=== PATIENT | male | born 1950 | race Caucasian/White ===

== ENCOUNTER 2016-09-26 08:59 | Day surgery (SDC) | payer BC ==
[~2016-09-26 08:59] MED LIST: LACTATED RINGERS 1,000 ML IV SCH
[2016-09-26] MEDS ORDERED: TRIAMCINOLONE ACETONIDE 40 MG/ML 1 ML VIAL ONE (09:05)
[2016-09-26] MEDS ORDERED: MIDAZOLAM 2 MG/2 ML VIAL ONE (09:05)
[2016-09-26] MEDS ORDERED: IOHEXOL 180 MG/ML 1 ML ML ONE (09:05)
[2016-09-26] MEDS ORDERED: fentaNYL (PF) 50 MCG/ML 2 ML AMP ONE (09:05)
[2016-09-26 09:09] VITALS: RESP 16; TEMP 97.1
[2016-09-26] MEDS ORDERED: LACTATED RINGERS 1,000 ML IV ONE (09:10)
[2016-09-26] MEDS ORDERED: LIDOCAINE 1% 20 ML VIAL (10MG/ML) FOR IV START SQ ONE (09:11)
--- NOTE | 2016-09-26 09:28 | P.PCN ---
Date of Procedure: 09/26/16 Procedure(s) Performed: PREOPERATIVE DIAGNOSIS: 1- Lumbar Degenerative Disc Diseases 2-Lumbar spondylosis with Facet arthropathy without myelopathy POSTOPERATIVE DIAGNOSIS: 1-Lumber Degenerative Disc Diseases 2-Lumbar spondylosis with Facet arthropathy without myelopathy PROCEDURE 1. Lumbar epidural steroid injection under fluoroscopic guidance at the L4-5 level. 2. Lumbar epidurogram. ANESTHESIA: Local with 1% lidocaine 3 ml and IV sedation with Versed 1 mg , and fentanyle 50 Mcg EBL: Minimal PROCEDURE INDICATION: The patient with low back pain and radiculitis symptoms unresponsive to conservative treatment. Fluoroscopy was used to optimize visualization of the needle placement and to maximize safety. PROCEDURE DESCRIPTION / TECHNIQUE: The patient was seen and identified in the preoperative area. Risks, benefits , complications including but not limited to infections ,bleeding ,allergic reaction to the medications ,nerve damage and not complete pain releife , and alternatives were discussed with the patient. The patient agreed to proceed with the procedure and signed the consent. IV was started, and vital signs were stable. Patient was taken to the OR and time out was completed. The patient was placed in the prone position on procedure table and a pillow was placed under the abdomen to reduce lumbar lordosis. The lumbosacral area was prepped and draped in the usual sterile fashion.ere closely monitored during the procedure. Conscious sedation was used during the procedure to decrease patients anxiety. Vital signs was monitered during the entire procedure. Using anterior-posterior fluoroscopy, the L4-5 interlaminar space was identified and the skin over this site was marked and then infiltrated with 1% lidocaine subcutaneously. Subsequently, a 20-gauge Tuohy epidural needle was inserted and advanced toward the epidural space using the Loss of resistance technique and guided by AP and lateral fluoroscopy. The correct needle position in the epidural space was verified with the injection of 2 mL of the water soluble contrast dye Omnipaque 180 contrast and observing an excellent epidurogram with the epidural spread of the dye, after negative aspiration for blood and CSF and in the absence of paresthesias. Again after negative aspiration, a 6 ml mixture containing 80 mg of Kenalog and 2 ml of preservative free Normal Saline, and 2 ml of preservative free lidocaine 1% solution was injected and a washout of epidurogram was seen. Needle was withdrawn intact, skin was cleansed, and bandages were applied. COMPLICATIONS: None DISPOSITION / PLANS: The patient was placed in a supine position and transferred to the recovery area in a stable condition for observation. There was no evidence of lower extremity motor or sensory deficit after the procedure. Patient was discharged from the recovery room after meeting discharge criteria. Home discharge instructions were given to the patient by the staff. The patient was reexamined prior to discharge. The patient will schedule a follow up in the clinic in 2-4 weeks.
[2016-09-26] MEDS ORDERED: IV FLUID CONTINUATION 1,000 ML IV ONE (09:38)
[2016-09-26 09:42] VITALS: PULSE 57
[2016-09-26 09:56] VITALS: BP 126/78
--- NOTE | 2016-09-26 10:51 | FL ---
EXAMINATION TYPE: FL guided pain mgmt statistic DATE OF EXAM: 09/26/2016 9:40 AM HISTORY: Lumbar epidural Fluoroscopy support supplied to the referring clinician. See dictated report from anesthesia, one se cond fluoroscopy time, intraoperative C-arm image documents the procedure
== END 2016-09-26 10:21 | disposition home or self-care (01) ==
LOC: ORPAIN 08:59
PROVIDERS: ATTEND Specialist
DX: M51.16 Intervertebral disc disorders with radiculopathy, lumbar region (principal); I10 Essential (primary) hypertension; M46.86 Other specified inflammatory spondylopathies, lumbar region
CPT/HCPCS: 62322; J2250; J3301; Q9965; J3010; 62323

== ENCOUNTER 2016-11-14 12:20 | Day surgery (SDC) | payer BC ==
[2016-11-11 15:40] VITALS: BMI 24.3
[2016-11-14 12:38] VITALS: RESP 16; TEMP 97
[2016-11-14] MEDS ORDERED: LIDOCAINE 1% 20 ML VIAL (10MG/ML) FOR IV START INTRADERMA ONE (12:39)
[2016-11-14] MEDS ORDERED: fentaNYL (PF) 50 MCG/ML 2 ML AMP ONE (13:21)
[2016-11-14] MEDS ORDERED: IOHEXOL 180 MG/ML 1 ML ML ONE (13:21)
[2016-11-14] MEDS ORDERED: TRIAMCINOLONE ACETONIDE 40 MG/ML 1 ML VIAL ONE (13:21)
[2016-11-14] MEDS ORDERED: MIDAZOLAM 2 MG/2 ML VIAL ONE (13:21)
--- NOTE | 2016-11-14 13:37 | P.PCN ---
Date of Procedure: 11/14/16 Surgeon: Kei Doyle Pathology: none sent Condition: stable Disposition: PACU Description of Procedure: PREOPERATIVE DIAGNOSIS: 1-Lumbar radiculitis. POSTOPERATIVE DIAGNOSIS: 1-Lumbar radiculitis. PROCEDURE 1. Lumbar epidural steroid injection under fluoroscopic guidance at the L4-L5 level. 2. Lumbar epidurogram. ANESTHESIA: Local with 1% lidocaine; IV sedation with Versed/fentanyl. EBL: Minimal PROCEDURE INDICATION: The patient with low back pain and radiculitis symptoms unresponsive to conservative treatment. Fluoroscopy was used to optimize visualization of the needle placement and to maximize safety. PROCEDURE DESCRIPTION / TECHNIQUE: The patient was seen and identified in the preoperative area. Risks, benefits, complications, and alternatives were discussed with the patient, including but not limited to bleeding, infection, nerve damage, allergic reactions to medications, and incomplete pain relief. The patient agreed to proceed with the procedure and signed the consent after all questions were answered. IV was started, and vital signs were stable. Patient was taken to the OR and time out was completed to confirm patient position, procedure, laterality of pain, and allergies. The patient was placed in the prone position on procedure table and a pillow was placed under the abdomen to reduce lumbar lordosis. The lumbosacral area was prepped and draped in the usual sterile fashion. Critical pause was taken. Vital signs were closely monitored during the procedure. Conscious sedation was used during the procedure to decrease patients anxiety. Using anterior-posterior fluoroscopy, the L4-L5 interlaminar space was identified and the skin over this site was marked and then infiltrated with 1% lidocaine subcutaneously in a paramedian fashion. Subsequently, a 20-gauge 3.5- inch Tuohy epidural needle was inserted and advanced toward the epidural space using the Loss of resistance technique and guided by AP and lateral fluoroscopy. The correct needle position in the epidural space was verified with the injection of 2 mL of the water soluble contrast dye Omnipaque 300 contrast and observing an excellent epidurogram with the epidural spread of the dye, after negative aspiration for blood and CSF and in the absence of paresthesias. Again after negative aspiration, a 8 ml mixture containing 80 mg of Kenalog and 4 ml of preservative free Normal Saline, and 2 ml of preservative free lidocaine 1% solution was injected and a washout of epidurogram was seen. Needle was withdrawn intact, skin was cleansed, and bandages were applied. COMPLICATIONS: None COMMENTS: DISPOSITION / PLANS: The patient was placed in a supine position and transferred to the recovery area in a stable condition for observation. There was no evidence of lower extremity motor or sensory deficit after the procedure. Patient was discharged from the recovery room after meeting discharge criteria. Home discharge instructions were given to the patient by the staff. The patient was reexamined prior to discharge and there were no issues. The patient will schedule a follow up injection in 4-6 weeks.
[2016-11-14 13:45] VITALS: BP 131/78; PULSE 58
[2016-11-14] MEDS ORDERED: IV FLUID CONTINUATION 1,000 ML IV ONE (14:47)
--- NOTE | 2016-11-14 15:03 | FL ---
Fluoroscopy HISTORY: Pain 9 seconds fluoroscopy time supplied to the referring clinician. 2 intraoperative C-arm images docume nt the procedure. See dictated report from anesthesia.
== END 2016-11-14 14:45 | disposition home or self-care (01) ==
LOC: ORPAIN 12:20
PROVIDERS: ATTEND Anesthesiology
DX: G89.29 Other chronic pain (principal); M54.16 Radiculopathy, lumbar region; F41.9 Anxiety disorder, unspecified; I10 Essential (primary) hypertension; E78.5 Hyperlipidemia, unspecified; F32.9 Major depressive disorder, single episode, unspecified; K21.9 Gastro-esophageal reflux disease without esophagitis; Z91.030 Bee allergy status; Z79.1 Long term (current) use of non-steroidal anti-inflammatories (NSAID); Z79.891 Long term (current) use of opiate analgesic; Z79.82 Long term (current) use of aspirin; Z79.899 Other long term (current) drug therapy
CPT/HCPCS: 62323; J2250; J3301; Q9965; J3010

== ENCOUNTER 2016-12-25 06:29 | Day surgery (SDC) | payer MEDICARE ==
[2016-12-24 10:18] VITALS: BMI 24.0
[2016-12-25 07:20] VITALS: RESP 16; TEMP 98.1
[2016-12-25] MEDS ORDERED: LIDOCAINE 1% 20 ML VIAL (10MG/ML) FOR IV START SQ ONE (07:31)
[2016-12-25] MEDS ORDERED: LACTATED RINGERS 1,000 ML IV ONE (07:33)
[2016-12-25] MEDS ORDERED: MIDAZOLAM 2 MG/2 ML VIAL ONE (07:38)
[2016-12-25] MEDS ORDERED: TRIAMCINOLONE ACETONIDE 40 MG/ML 1 ML VIAL ONE (07:38)
[2016-12-25] MEDS ORDERED: IOHEXOL 180 MG/ML 1 ML ML ONE (07:38)
[2016-12-25] MEDS ORDERED: fentaNYL (PF) 50 MCG/ML 2 ML AMP ONE (07:38)
[2016-12-25] MEDS ORDERED: IV FLUID CONTINUATION 1,000 ML IV ONE (07:56)
[2016-12-25 08:13] VITALS: PULSE 56
[2016-12-25 08:31] VITALS: BP 134/90
--- NOTE | 2016-12-25 08:52 | FL ---
EXAMINATION TYPE: FL guided pain mgmt statistic DATE OF EXAM: 12/25/2016 7:54 AM HISTORY: Flouroscopy time 1 seconds of fluoroscopy provided. IMPRESSION: 1. Fluoroscopy time.
--- NOTE | 2016-12-25 11:06 | P.PCN ---
Date of Procedure: 12/25/16 Procedure(s) Performed: PREOPERATIVE DIAGNOSIS: 1- Lumbar Degenerative Disc Diseases 2-Lumbar spondylosis with Facet arthropathy without myelopathy POSTOPERATIVE DIAGNOSIS: 1-Lumber Degenerative Disc Diseases 2-Lumbar spondylosis with Facet arthropathy without myelopathy PROCEDURE 1. Lumbar epidural steroid injection under fluoroscopic guidance at the L4-5 level. 2. Lumbar epidurogram. ANESTHESIA: Local with 1% lidocaine 3 ml and IV sedation with Versed 2 mg , and fentanyle 100 Mcg EBL: Minimal PROCEDURE INDICATION: The patient with low back pain and radiculitis symptoms unresponsive to conservative treatment. Fluoroscopy was used to optimize visualization of the needle placement and to maximize safety. PROCEDURE DESCRIPTION / TECHNIQUE: The patient was seen and identified in the preoperative area. Risks, benefits , complications including but not limited to infections ,bleeding ,allergic reaction to the medications ,nerve damage and not complete pain releife , and alternatives were discussed with the patient. The patient agreed to proceed with the procedure and signed the consent. IV was started, and vital signs were stable. Patient was taken to the OR and time out was completed. The patient was placed in the prone position on procedure table and a pillow was placed under the abdomen to reduce lumbar lordosis. The lumbosacral area was prepped and draped in the usual sterile fashion.ere closely monitored during the procedure. Conscious sedation was used during the procedure to decrease patients anxiety. Vital signs was monitered during the entire procedure. Using anterior-posterior fluoroscopy, the L4-5 interlaminar space was identified and the skin over this site was marked and then infiltrated with 1% lidocaine subcutaneously. Subsequently, a 20-gauge Tuohy epidural needle was inserted and advanced toward the epidural space using the ``Loss of resistance technique and guided by AP and lateral fluoroscopy. The correct needle position in the epidural space was verified with the injection of 2 mL of the water soluble contrast dye Omnipaque 180 contrast and observing an excellent epidurogram with the epidural spread of the dye, after negative aspiration for blood and CSF and in the absence of paresthesias. Again after negative aspiration, a 6 ml mixture containing 80 mg of Kenalog and 2 ml of preservative free Normal Saline, and 2 ml of preservative free lidocaine 1% solution was injected and a washout of epidurogram was seen. Needle was withdrawn intact, skin was cleansed, and bandages were applied. COMPLICATIONS: None DISPOSITION / PLANS: The patient was placed in a supine position and transferred to the recovery area in a stable condition for observation. There was no evidence of lower extremity motor or sensory deficit after the procedure. Patient was discharged from the recovery room after meeting discharge criteria. Home discharge instructions were given to the patient by the staff. The patient was reexamined prior to discharge. The patient will schedule a follow up in the clinic in 2-4 weeks.
== END 2016-12-25 08:49 | disposition home or self-care (01) ==
LOC: ORPAIN 06:29
PROVIDERS: ATTEND Specialist
DX: M46.96 Unspecified inflammatory spondylopathy, lumbar region (principal); M47.26 Other spondylosis with radiculopathy, lumbar region; M51.16 Intervertebral disc disorders with radiculopathy, lumbar region; Z88.6 Allergy status to analgesic agent
CPT/HCPCS: 62323; J2250; J3301; Q9965; J3010

== ENCOUNTER → 2017-02-03 | Outpatient (CLI) | payer MEDICARE ==
[2017-02-03 12:58] VITALS: BP 158/97; PULSE 56; RESP 16; TEMP 98.2
--- NOTE | 2017-02-03 13:22 | P.PN ---
Progress Note - Text This is a 67-year-old gentleman with axial lower back pain with occasional radiation to the upper thighs. The patient denies any paresthesia in the lower extremities or any weakness. He also denies any bowel or bladder dysfunction. The patient denies any nocturnal pain or any weight loss recently. He had 3 epidural steroid injections before with short period of pain relief for less than 1 week. Neuro exam showed normal muscle strength in the lower extremities and normal deep tendon reflexes. He has tenderness in the lumbar paravertebral area bilaterally and facet loading test was positive. The patient may benefit from getting diagnostic lumbar medial branch block without steroids, and if it does give the patient more than 50% of pain relief immediately after the procedure then we can plan on doing RFA in the future. The procedure was explained to the patient and his questions and his 's questions were answered. If the patient does not get improvement of his pain from this procedure then we will plan on doing another MRI on the lumbar spine. The patient's pain does not respond to a combination of tramadol and Motrin. I will give him prescription only for 2 weeks of [place] 7.5 mg #30 pills. I told the patient not to combine tramadol with [place] but he can take Motrin with [place] if needed.
== END | disposition home or self-care (01) ==
LOC: PNWHC3 12:33
PROVIDERS: ATTEND Anesthesiology
DX: M54.5 Low back pain (principal)
CPT/HCPCS: 99211

== ENCOUNTER 2017-02-13 10:07 | Day surgery (SDC) | payer MEDICARE ==
[2017-02-13] MEDS ORDERED: LIDOCAINE 1% 20 ML VIAL (10MG/ML) FOR IV START INTRADERMA ONE (10:34)
[2017-02-13] MEDS ORDERED: MIDAZOLAM 2 MG/2 ML VIAL ONE (10:39)
[2017-02-13] MEDS ORDERED: BUPIVACAINE (PF) 0.5% 30 ML VIAL ONE (10:39)
--- NOTE | 2017-02-13 10:56 | P.PCN ---
Date of Procedure: 02/13/17 Preoperative Diagnosis: Postoperative Diagnosis: Procedure(s) Performed: Implants: Surgeon: Kei Doyle Pathology: none sent Condition: stable Disposition: PACU Indications for Procedure: Operative Findings: Description of Procedure: PREOPERATIVE DIAGNOSIS: L3-L4, L4-L5, and L5-S1 spondylosis without myelopathy and facet arthropathy. POSTOPERATIVE DIAGNOSIS: L3-L4, L4-L5, and L5-S1 spondylosis without myelopathy and facet arthropathy. PROCEDURE DESCRIPTION: Patient presents for bilateral L3, L4 and L5 diagnostic medial branch blocks under fluoroscopic guidance. The procedure is performed using fluoroscopic guidance during needle placement to assure proper position and maximize safety. ANESTHESIA: Local with 1% lidocaine; conscious sedation EBL: Minimal PROCEDURE INDICATION: Patient with lumbar facet arthropathy signs and symptoms, here for diagnostic medial branch block #1. Pt does not take any blood thinning medications. PROCEDURE DESCRIPTION: The patient was seen and identified in the preoperative area. Risks, benefits, complications, and alternatives were discussed with the patient (including but not limited to incomplete pain relief, bleeding, infection, nerve damage, and allergies to medications), the patient agreed to proceed with the procedure and signed the consent after all questions were answered. Patient was taken to the OR and time out was completed to verify proper patient, position, laterality of pain, and allergies. Pt was placed in the prone position and a pillow was placed under the abdomen to reduce lumbar lordosis. The lumbosacral area was prepped and draped in the usual sterile fashion. Using oblique fluoroscopy, the eye of the "Pablo dog" of right L4 vertebral body, which corresponds to the path of the medial branch originating from the level above, which is L3 in this case, was identified. Subsequently, a 22-gauge 3.5-inch spinal needle was inserted under fluoroscopic guidance toward the eye of the "Pablo dog" of the right L4 vertebral body, corresponding to the junction of the superior articular process and the transverse process of the pedicle of the same level. After needle tip confirmation on lateral view and after negative aspiration for CSF and blood and without paresthesias, 1 mL of a 6 ml solution of 0.5% preservative-free bupivacaine was injected. NO STEROID USED FOR THIS PROCEDURE. Subsequently the needle was withdrawn intact and the same procedure was repeated for the right L4, right L5, left L3, left L4, and left L5 medial branches which together with right L3 medial branch correspond to the sensory innervation of the bilateral L3-L4, L4-L5, and L5-S1 facet joints. Needle was withdrawn intact after each injection. At the end of the procedure, the skin was cleansed and bandages were applied. COMPLICATIONS: None. DISPOSITION/PLAN: The patient taken to the recovery area after the procedure in a stable condition for observation. Patient was reexamined prior to discharge and there were no issues and he had excellent pain relief > 50% of his back pain. Patient was discharged home, accompanied by an adult, after meeting discharged criteria. Discharge instructions were give to the patient by the staff. Patient was specifically instructed not to drive today and to rest for the rest of the day. Patient will follow up for repeat medial branch block.
[2017-02-13] MEDS ORDERED: IV FLUID CONTINUATION 800 ML IV ONE (11:06)
[2017-02-13 11:08] VITALS: RESP 16
[2017-02-13 11:28] VITALS: BP 148/82; PULSE 59
--- NOTE | 2017-02-13 11:36 | FL ---
FLUOROSCOPY 13 seconds of fluoroscopy time were utilized during Pain Injection. 6 images document the procedure.
== END 2017-02-13 11:45 | disposition home or self-care (01) ==
LOC: ORPAIN 10:07
PROVIDERS: ATTEND Anesthesiology
DX: M46.96 Unspecified inflammatory spondylopathy, lumbar region (principal); M47.816 Spondylosis without myelopathy or radiculopathy, lumbar region; M47.817 Spondylosis without myelopathy or radiculopathy, lumbosacral region; Z88.6 Allergy status to analgesic agent
CPT/HCPCS: 99152; 64493; 64494; 64495; J2250

== ENCOUNTER 2017-03-12 07:52 | Day surgery (SDC) | payer MEDICARE ==
[2017-03-10 12:22] VITALS: BMI 24.9
[2017-03-12 08:08] VITALS: TEMP 98.4
[2017-03-12] MEDS ORDERED: LIDOCAINE 1% 20 ML VIAL (10MG/ML) FOR IV START INTRADERMA ONE (08:15)
[2017-03-12] MEDS ORDERED: LACTATED RINGERS 1,000 ML IV SCH (08:15)
[2017-03-12] MEDS ORDERED: BUPIVACAINE (PF) 0.5% 30 ML VIAL ONE (08:40)
[2017-03-12] MEDS ORDERED: DEXAMETHASONE SOD PHOS (MDV) 100 MG/10 ML VIAL ONE (08:40)
[2017-03-12] MEDS ORDERED: MIDAZOLAM 2 MG/2 ML VIAL ONE (08:40)
--- NOTE | 2017-03-12 09:02 | P.PCN ---
Date of Procedure: 03/12/17 Preoperative Diagnosis: Postoperative Diagnosis: Procedure(s) Performed: Implants: Surgeon: Kei Doyle Pathology: none sent Condition: stable Disposition: PACU Indications for Procedure: Operative Findings: Description of Procedure: PREOPERATIVE DIAGNOSIS: L3-L4, L4-L5, and L5-S1 spondylosis without myelopathy and facet arthropathy. POSTOPERATIVE DIAGNOSIS: L3-L4, L4-L5, and L5-S1 spondylosis without myelopathy and facet arthropathy. PROCEDURE DESCRIPTION: Patient presents for bilateral L3, L4 and L5 diagnostic medial branch blocks under fluoroscopic guidance. The procedure is performed using fluoroscopic guidance during needle placement to assure proper position and maximize safety. ANESTHESIA: Local with 1% lidocaine; conscious sedation with Versed only EBL: Minimal PROCEDURE INDICATION: Patient with lumbar facet arthropathy signs and symptoms, here for diagnostic medial branch block #1. Pt does not take any blood thinning medications. 80% relief for one day from first MBB. PROCEDURE DESCRIPTION: The patient was seen and identified in the preoperative area. Risks, benefits, complications, and alternatives were discussed with the patient (including but not limited to incomplete pain relief, bleeding, infection, nerve damage, and allergies to medications), the patient agreed to proceed with the procedure and signed the consent after all questions were answered. Patient was taken to the OR and time out was completed to verify proper patient, position, laterality of pain, and allergies. Pt was placed in the prone position and a pillow was placed under the abdomen to reduce lumbar lordosis. The lumbosacral area was prepped and draped in the usual sterile fashion. Using oblique fluoroscopy, the eye of the "Pablo dog" of right L4 vertebral body, which corresponds to the path of the medial branch originating from the level above, which is L3 in this case, was identified. Subsequently, a 22-gauge 3.5-inch spinal needle was inserted under fluoroscopic guidance toward the eye of the "Pablo dog" of the right L4 vertebral body, corresponding to the junction of the superior articular process and the transverse process of the pedicle of the same level. After needle tip confirmation on lateral view and after negative aspiration for CSF and blood and without paresthesias, 1 mL of a 6 ml solution of 0.5% preservative-free bupivacaine was injected. NO STEROID USED FOR THIS PROCEDURE. Subsequently the needle was withdrawn intact and the same procedure was repeated for the right L4, right L5, left L3, left L4, and left L5 medial branches which together with right L3 medial branch correspond to the sensory innervation of the bilateral L3-L4, L4-L5, and L5-S1 facet joints. Needle was withdrawn intact after each injection. At the end of the procedure, the skin was cleansed and bandages were applied. COMPLICATIONS: None. DISPOSITION/PLAN: The patient taken to the recovery area after the procedure in a stable condition for observation. Patient was reexamined prior to discharge and there were no issues and he had excellent pain relief > 50% of his back pain prior to discharge. Patient was discharged home, accompanied by an adult, after meeting discharged criteria. Discharge instructions were give to the patient by the staff. Patient was specifically instructed not to drive today and to rest for the rest of the day. Patient will schedule right lumbar RFA next.
[2017-03-12] MEDS ORDERED: IV FLUID CONTINUATION 1,000 ML IV ONE (09:04)
[2017-03-12 09:06] VITALS: PULSE 56; RESP 18
--- NOTE | 2017-03-12 09:08 | FL ---
FLUOROSCOPY 14 seconds of fluoroscopy time were utilized during Pain Injection. 6 images document the procedure.
[2017-03-12 09:20] VITALS: BP 137/87
== END 2017-03-12 09:34 | disposition home or self-care (01) ==
LOC: ORPAIN 07:52
PROVIDERS: ATTEND Anesthesiology
DX: G89.29 Other chronic pain (principal); M47.816 Spondylosis without myelopathy or radiculopathy, lumbar region; M47.817 Spondylosis without myelopathy or radiculopathy, lumbosacral region; M46.96 Unspecified inflammatory spondylopathy, lumbar region; M46.97 Unspecified inflammatory spondylopathy, lumbosacral region; F32.9 Major depressive disorder, single episode, unspecified; K21.9 Gastro-esophageal reflux disease without esophagitis; Z79.1 Long term (current) use of non-steroidal anti-inflammatories (NSAID); Z79.891 Long term (current) use of opiate analgesic; Z79.899 Other long term (current) drug therapy; Z91.030 Bee allergy status; Z88.6 Allergy status to analgesic agent
CPT/HCPCS: 99152; 64493; 64494; 64495; J2250; J1100

== ENCOUNTER 2017-04-03 11:13 | Day surgery (SDC) | payer MEDICARE ==
[2017-04-01 16:34] VITALS: BMI 24.9
[2017-04-03] MEDS ORDERED: LACTATED RINGERS 1,000 ML IV SCH (11:30)
[2017-04-03 11:46] VITALS: RESP 16; TEMP 98.1
[2017-04-03] MEDS ORDERED: LIDOCAINE 1% 20 ML VIAL (10MG/ML) FOR IV START INTRADERMA ONE (11:46)
[2017-04-03] MEDS ORDERED: LACTATED RINGERS 1,000 ML IV ONE (11:47)
--- NOTE | 2017-04-03 12:50 | P.PCN ---
Date of Procedure: 04/03/17 Preoperative Diagnosis: Postoperative Diagnosis: Procedure(s) Performed: Implants: Surgeon: Kei Doyle Pathology: none sent Condition: stable Disposition: PACU Indications for Procedure: Operative Findings: Description of Procedure: PREOPERATIVE DIAGNOSIS: Lumbar spondylosis without myelopathy and facet arthropathy POSTOPERATIVE DIAGNOSIS: Lumbar spondylosis without myelopathy and facet arthropathy PROCEDURES: Right Radiofrequency thermocoagulation, L3-L4, L4-L5, and L5-S1 medial branch, with fluoroscopic guidance. ANESTHESIA: 1% lidocaine plain; Conscious sedation with versed/fentanyl EBL: Minimal PROCEDURE INDICATION: The patient with low back pain secondary to lumbar arthropathy who had more than 50% relief of pain with previous diagnostic lumbar medial branch block with bupivacaine. Patient presents for RFA today; no use of blood thinners. PROCEDURE DESCRIPTION / TECHNIQUE: The patient was seen and identified in the preoperative area. Risks, benefits, complications, and alternatives were discussed with the patient (including but not limited to incomplete pain relief , bleeding, infection, nerve damage, and allergies to medications), the patient agreed to proceed with the procedure and signed the consent after all questions were answered. Patient was taken to the OR and time out was completed to verify proper patient , position, laterality of pain, and allergies. Pt was placed in the prone position. IV was started. Vital signs remained stable throughout the procedure. A pillow was placed under the patients chest to decrease lordosis. The lumbosacral area was prepped and draped in the usual sterile fashion. Vital signs were closely monitored during the procedure. Conscious sedation was used during the procedure to decrease patients anxiety. Using AP and then oblique fluoroscopy, the eye of the Pablo dog corresponding to the connection between the superior and transverse articular processes of right L4, L5 and top of the sacrum were identified, marked, and localized with 1% lidocaine. Subsequently, a 20 gauge, 100-mm radiofrequency cannula with a 10-mm active tip was advanced guided by fluoroscopy to each of the eyes of the Pablo dog at right L3, L4, and L5 medial branches. Each site then underwent sensory testing at 50 Hz and 0 to 1 volt and motor testing at 2 Hz and 0 to 3 volt with local stimulation, but no radicular symptoms down the legs. Thereafter the right L3, L4, and L5 medial branch sites underwent radiofrequency thermocoagulation at 80 degrees Celsius for 90 seconds after injecting 0.5 ml of PF lidocaine 1%. After thermocoagulation, 1 ml of the block solution containing Kenalog 40 mg and 2 mL of preservative-free normal saline was injected at the right L3, L4, and L5 medial branch levels after negative aspiration of CSF and blood and with no paresthesias. Cannulas were retracted while injecting lidocaine 1% until the needles were removed. At the end of the procedure, the skin was cleansed and bandages were applied. COMPLICATIONS: No acute complications. DISPOSITION / PLANS: The patient was placed in a supine position and transferred to the recovery area in a stable condition for observation and was discharged from the recovery room after meeting discharge criteria. Home discharge instructions given to the patient by the staff. The patient was reexamined prior to discharge and there were no issues. The patient will schedule a repeat lumbar RFA (left side) in 4-6 weeks. He was given a [facility] script for 70 (seventy) pills for 35 days' supply. Told patient that we will decrease this after his next RF procedure.
--- NOTE | 2017-04-03 12:56 | FL ---
EXAMINATION TYPE: FL guided pain mgmt statistic DATE OF EXAM: 04/03/2017 HISTORY: Flouroscopy time 15 seconds of fluoroscopy provided. IMPRESSION: 1. Fluoroscopy time.
[2017-04-03] MEDS ORDERED: IV FLUID CONTINUATION 1,000 ML IV ONE (12:59)
[2017-04-03 13:16] VITALS: BP 147/83; PULSE 57
== END 2017-04-03 13:39 | disposition home or self-care (01) ==
LOC: ORPAIN 11:13
PROVIDERS: ATTEND Anesthesiology
DX: M47.816 Spondylosis without myelopathy or radiculopathy, lumbar region (principal); M46.96 Unspecified inflammatory spondylopathy, lumbar region
CPT/HCPCS: 64635; 64636; 99152; J2250; J3301; J3010; 99153

== ENCOUNTER 2017-05-08 08:54 | Day surgery (SDC) | payer MEDICARE ==
[2017-05-05 12:06] VITALS: BMI 25.0
[2017-05-08 09:09] VITALS: RESP 16; TEMP 98
[2017-05-08] MEDS ORDERED: LIDOCAINE 1% 20 ML VIAL (10MG/ML) FOR IV START INTRADERMA ONE (09:12)
--- NOTE | 2017-05-08 09:56 | P.PCN ---
Date of Procedure: 05/08/17 Preoperative Diagnosis: Lumbar spondylosis without myelopathy Postoperative Diagnosis: Same as above Procedure(s) Performed: Left lumbar medial branch radiofrequency ablation under fluoroscopic guidance Implants: Anesthesia: other (Conscious sedation with IV fentanyl and Versed) Surgeon: Any Antonio Pathology: none sent Condition: stable Disposition: PACU Indications for Procedure: Operative Findings: Description of Procedure: The patient was seen in preoperative holding area consent was obtained then she was brought into the procedure 1 placed in prone position. Skin was prepped with ChloraPrep and draped in a sterile manner. Lidocaine 1% was used to numb the skin up at the target points that were chosen as follows: For The L5-S1 level which corresponds to thedorsal ramus of L5 the target point was the superior medial aspect of the sacral ala on the left side of the spine on the AP view of fluoroscopy, and for the L2, L3, and L4 medial branches the target points were the connection between the transverse process and the superior to go process of L3, L4, and L5 vertebra respectively on the left oblique view of fluoroscopy. I used 18-gauge 100 mm in length with 10 mm curved active tip radiofrequency ablation needles for this procedure. I placed the active tips as parallel as possible to the medial branches tracks by going in a superior medial direction. AP, oblique, and lateral view of fluoroscopy were used to verify needle tip position. Then motor stimulation showed only local twitches of these needles with no radiation of twitching to the right lower extremity. I then prepared a solution of 3 MLS of Marcaine 0.5% +40 mg of Kenalog and 1 mL of the solution was injected in each needle before starting radio frequency ablation for 90 seconds at 80C. After The first session of ablation was done the needles were withdrawn by 1 or 2 mm and the bevels were turned 180 and another another session of ablation was started for 90 seconds at 80C. Patient tolerated procedure well.
[2017-05-08] MEDS ORDERED: IV FLUID CONTINUATION 1,000 ML IV ONE (10:05)
[2017-05-08 10:23] VITALS: BP 138/88; PULSE 58
--- NOTE | 2017-05-08 10:33 | FL ---
EXAMINATION TYPE: FL guided pain mgmt statistic DATE OF EXAM: 05/08/2017 HISTORY: Flouroscopy time 13 seconds of fluoroscopy provided. IMPRESSION: 1. Fluoroscopy time.
== END 2017-05-08 10:38 | disposition home or self-care (01) ==
LOC: ORPAIN 08:54
DX: M47.816 Spondylosis without myelopathy or radiculopathy, lumbar region (principal); Z88.6 Allergy status to analgesic agent; Z91.030 Bee allergy status
CPT/HCPCS: 99152; 64635; 64636 ×3; J2250; J3301; J3010; 99153

== ENCOUNTER → 2017-07-03 | Outpatient (CLI) | payer MEDICARE ==
[2017-07-03 12:40] VITALS: BP 161/93; PULSE 61; RESP 20
--- NOTE | 2017-07-03 12:56 | P.PN ---
Subjective Progress Note Date: 07/03/17 This is follow-up visit for this patient with a history of severe and chronic low back pain secondary to lumbar degenerative disc disease, lumbar facet arthropathy, we did interventional pain management injection,, satus post Lumbar epidural steroid injctions , and radiofrequency ablation of the medial branch lumbar area patient currently on 1-Motrin 600 mg every 8 hours 2-[place] 7.5/325 twice a day Patient denies any side effects of the medication, denies excessive drowsiness or sleepiness, denies suicidal ideation, and reports that the current pain medication is helping To control the pain and improve activity of daily living . Patient denies any motor or sensory deficit, denies change in bowel movement or urination, patient denies any fever or night sweats and patient here for follow-up visit and medication refill, patient reported that his pain level improved significantly after the radiofrequency, is able to function more and do activity of daily livings without any difficulty, for this reason I will give him medication refills and he will follow up in the pain clinic in 2 months Assessment and Plan Plan: Assessment and plan= chronic low back pain secondary to lumbar degenerative disc disease , lumbar spondylosis with lumbar facet arthropathy , status post radiofrequency ablation of the medial branch lumbar area chronic and current use of high-risk medication (opioids) Patient denies any side effects of the current pain medication and the current treatment/medication ML and the patient to do activity of daily living Patient signed the narcotic agreement, and he was orally counseled, not to overuse, not to abuse, not to Divert , not tp sell pain medication, and to take it as prescribed only, Patient was counseled not to drive or operate heavy equipment while using narcotic medication, and advised not to use alcohol or any Illicit drugs while using the narcotis, the patient's verbalized understanding that lack of compliance with any of the above instructions and will likely to cause discharge from the pain service, not to renew his narcotic prescriptions Medication managements= patient will be given prescription refills for 1-Motrin 600 mg every 8 hours 2-[place] 7.5/325 every 8 hours
== END | disposition home or self-care (01) ==
LOC: PNWHC3 12:09
PROVIDERS: ATTEND Specialist
DX: M51.36 Other intervertebral disc degeneration, lumbar region (principal); M47.816 Spondylosis without myelopathy or radiculopathy, lumbar region; M46.86 Other specified inflammatory spondylopathies, lumbar region
CPT/HCPCS: 99211

== ENCOUNTER → 2017-09-24 | Outpatient (CLI) | payer MEDICARE ==
[2017-09-24 12:46] VITALS: BP 148/103; PULSE 77; RESP 16
--- NOTE | 2017-09-24 13:10 | P.PN ---
Subjective Progress Note Date: 09/24/17 This is follow-up visit for this patient with a history of severe and chronic low back pain secondary to lumbar degenerative disc disease, lumbar facet arthropathy, we did interventional pain management injection, radiofrequency ablation of the medial branch lumbar area in February and March 2017, pain improved significantly and patient currently on, 1-[place] 7.5/325 every 8 hours 2-Motrin 600 mg every 8 hours when necessar Patient denies any side effects of the medication, denies excessive drowsiness or sleepiness, denies suicidal ideation, and reports that the current pain medication is helping To control the pain and improve activity of daily living . Patient denies any motor or sensory deficit, denies change in bowel movement or urination, patient denies any fever or night sweats and patient here for follow-up visit and medication refill Objective - Exam Physical Examinations : 1-Constitutiona : Cooperative , not in acute distress 2- neurologic : Cranial nerve II to XII intact , no focal neurological deffecit . 3-psychatric : alert , oriented X 3 , appropriate affect , intact judgment and insight . 4- musculoskeltal : t . , Lumber spine = normal moter stegnth lower extremities ,thigh and legs .5/5 Assessment and Plan Plan: Assessment and plan= chronic low back pain secondary to lumbar degenerative disc disease , lumbar spondylosis with lumbar facet arthropathy , pain improved after the RFA chronic and current use of high-risk medication (opioids) Patient denies any side effects of the current pain medication and the current treatment/medication ML and the patient to do activity of daily living , Diagnoses, prognosis, treatment options, including but not limited to physical therapy, medication management, interventional therapies, and surgery, were discussed with the patient All the questions answered Patient signed the narcotic agreement, and he was orally counseled, not to overuse, not to abuse, not to Divert , not tp sell pain medication, and to take it as prescribed only, Patient was counseled not to drive or operate heavy equipment while using narcotic medication, and advised not to use alcohol or any Illicit drugs while using the narcotis, the patient's verbalized understanding that lack of compliance with any of the above instructions and will likely to cause discharge from the pain service, not to renew his narcotic prescriptions Medication managements= patient will be given prescription refills for 1-[place] 7.5/325 every 8 hours 2-Motrin 600 mg every 8 hours Interventional pain management=none Refferal = Follow-up= 2 months , Time with Patient: Less than 30
== END | disposition home or self-care (01) ==
LOC: PNWHC3 12:21
PROVIDERS: ATTEND Specialist
DX: G89.29 Other chronic pain (principal); M54.5 Low back pain; M51.36 Other intervertebral disc degeneration, lumbar region; M46.86 Other specified inflammatory spondylopathies, lumbar region; Z79.1 Long term (current) use of non-steroidal anti-inflammatories (NSAID); Z79.891 Long term (current) use of opiate analgesic
CPT/HCPCS: 99211

== ENCOUNTER → 2017-11-19 | Outpatient (CLI) | payer MEDICARE ==
[2017-11-19 14:30] VITALS: BP 144/87; PULSE 58; RESP 18
--- NOTE | 2017-11-19 14:32 | P.PN ---
Subjective Progress Note Date: 11/19/17 This is follow-up visit for this patient with a history of severe and chronic low back pain secondary to lumbar degenerative disc diseases , lumbar spondylosis with facet arthropathy, we have done, and the frequency ablation of the medial branch lumbar area , and that helped his low back pain significantly Patients currently on [place] 7.5/325 when necessary twice a day, Motrin 600 mg when necessary twice a day Patient denies any side effects of the medication, denies excessive drowsiness or sleepiness, denies suicidal ideation, and reports that the current pain medication is helping To control the pain ,and improve activity of daily living Patient denies any motor or sensory deficit , patient denies any fever or night sweats, denies any change in the bowel movements or urination Physical Examinations : 1-Constitutiona : Cooperative , not in acute distress . 2-HEENT : nech ; supple , no Lymphadenopathy , no Thyromegaly , normal thyroid size . eyes : no ptosis , no icterus, no photophobia . ENT : normal of hearing , normal oropharynx , no Thrush . 3- Respiratory : Chest clear to auscultations Bilaterally , no wheezing , no Rhonchi . 4- Cardiovascular : regular rate and rhythem , S1 , S2 , no S3 , no S4. 5- Gastrointestinal : abdomen soft no tenderness , bowel sounds positive all four quadrents , no organomegally . 6- Genitourinary : Defferred . 7- neurologic : Cranial nerve II to XII intact , no focal neurological deffecit . 8-psychatric : alert , oriented X 3 , appropriate affect , intact judgment and insight . 9-Lymphatic : no Lymphadenopathy . 10- musculoskeltal : exams of the Lumber spine = motor strength lower extremities ,thigh and legs .5/5 deep tendon reflexes : normal Knee Jerk , normal ankle Jerk . lumber facet Loading Test positive strait leg raising test positive at 30 degree , RT ,LT , Fabere test positive RT and positive LT . Range of motion: Range of motion in flexion of the lumbar spine 30 degrees Range of motion range of motion of extension of the lumbar spine 10 Assessment and plan = Chronic low back pain secondary to lumbar degenerative disc disease , lumbar spondylosis with facet arthropathy without myelopathy , chronic and current use of high-risk medication (Opioids). The patient was counseled about risk of opioid use, psychological risk associated with opioids and was orally counseled to not overuse , divert,or sell dictations to take medications as prescribed only , and to restore medication in safe location , and the patient counseled against driving while using narcotic medications, and also not to use alcohol or any illicit recreational drugs, the patient's verbalized understanding that the lack of compliance will result in failure to renew narcotic prescription and possible discharge from the clinic - diagnoses, prognosis, and treatment options including but not limited to physical therapy, surgical interventions, interventional therapies , and medication management including narcotics and adjuvant medication were discussed with the patient and all the questions answered A prescription refill for [place] 7.5/325 dispense 60 with 1 refill, Motrin 600 mg every 8 hours dispense 60 with 1 refill, he'll follow up in the pain clinic in 2 months and in the future we can consider doing radiofrequency ablation of the medial branch lumbar area if he continued to have low back pain Objective - Vital Signs Vital signs: Intake & Output 11/18/17 11/19/17 11/19/17 18:59 06:59 18:59 Weight 70.307 kg
== END | disposition home or self-care (01) ==
LOC: PNWHC3 12:35
PROVIDERS: ATTEND Specialist
DX: G89.29 Other chronic pain (principal); M51.36 Other intervertebral disc degeneration, lumbar region; M47.816 Spondylosis without myelopathy or radiculopathy, lumbar region; M46.96 Unspecified inflammatory spondylopathy, lumbar region; Z79.891 Long term (current) use of opiate analgesic
CPT/HCPCS: 99211

== ENCOUNTER → 2018-01-14 | Outpatient (CLI) | payer MEDICARE ==
[2018-01-14 13:53] VITALS: BP 149/93; PULSE 70; RESP 16
--- NOTE | 2018-01-14 14:21 | P.PN ---
Progress Note - Text Progress Note Date: 01/14/18 This very pleasant 68-year-old gentleman with a long-standing history of low back pain. He has undergone previous diagnostic medial branch nerve blocks as well as left lumbar radio frequency ablation he reports this was very helpful for him. He continues to take [place] to help with his pain. He reports this does reduce his pain and allows him to improve his function. He denies any bowel or bladder dysfunction. He denies pain radiating down his leg below his knee. In addition to above, 13-point review of systems is also negative for chest pain , shortness of breath, changes in vision, changes in hearing, new onset weakness , abdominal pain, diarrhea, extreme fatigue, malaise, fever, skin changes, homicidal or suicidal ideation, or bowel or bladder incontinence. Vital Signs: Reviewed in EMR Gen: WDWN, AAOx3, NAD HEENT: NCAT, EOMI, hearing grossly normal Pulm: resp unlabored Abd: soft, NT, ND Neck: supple, trachea midline TTP lower thoracic spine paravertebral area ROM in flexion lumbar spine: reduced ROM in extension lumbar spine: reduced Lumbar paravertebral tenderness: + Facet loading: + On the left, negative on the right SI joint tenderness: Negative Rodo's test: Negative Straight leg raise: Negative Lower extremity: decreased ROM dorsiflexion/plantarflexion strength, hip flexion/extension, and knee flexion/extension secondary to pain Neuro: CN II-XII grossly intact, muscle strength lower extremities PRESERVED Imaging: Reviewed in EMR Assessment: 1. lumbar spinal stenosis 2. lumbar radiculopathy 3. lumbar spondylosis Plan: 1. Explanation: Opioid and psychological risk scores were reviewed. Diagnoses , prognoses, and multiple treatment options including but not limited to physical therapy, interventional therapies, adjuvant medical therapies, narcotic medication therapies, and surgery were discussed with the patient and all questions were answered to the patient's satisfaction. 2. Opioid agreement: 3. Counseling: The patient was counseled extensively on SMOKING CESSATION, BODY MASS INDEX, EXERCISE. Specifically, the patient was instructed regarding the importance of smoking cessation, obesity, and exercise in the context of both chronic pain and overall health. 4. Procedures: The patient was recently scheduled for treatment of his lumbar facet pain. He reports to me that his insurance will not cover another radiofrequency ablation until April of this year. Therefore, we will schedule him for diagnostic medial branch nerve blocks on the left side at L4, L5 and the sacral ala to hopefully help relieve his pain. 5. Consultations: None 6. Investigations: None 7. Medications: Refill prescription for [place] was sent electronically as well as a perception for mobility. Maps report was reviewed and revealed no unusual activity. 8. Disposition: f/u for procedure as scheduled PQRS measures: 1-Patient's medications are documented in the chart. 2-Tobacco use is positive, counseling given 3-Patient has not had a pneumococcal vaccine. 4-Advanced care planning discussed, patient unable to give. 5-Opioid contract signed with the patient. 6-Pain positive, follow-up visit or procedure scheduled 7-Patient's blood pressure measured and documented, and WNL. 8-Patient's weight was measured, and body mass index ABOVE the normal limits, and counseling was done. Patient instructed to follow up with PCP. 9-Patient WAS NOT identified as an unhealthy alcohol user.
== END | disposition home or self-care (01) ==
LOC: PNWHC3 13:24
PROVIDERS: ATTEND Pain Medicine Pain Medicine
DX: G89.29 Other chronic pain (principal); M54.5 Low back pain; M48.061 Spinal stenosis, lumbar region without neurogenic claudication; M47.26 Other spondylosis with radiculopathy, lumbar region; F17.200 Nicotine dependence, unspecified, uncomplicated; Z79.891 Long term (current) use of opiate analgesic; Z71.6 Tobacco abuse counseling
CPT/HCPCS: 99211

== ENCOUNTER 2018-01-20 07:42 | Day surgery (SDC) | payer MEDICARE ==
[2018-01-20] MEDS ORDERED: LACTATED RINGERS 1,000 ML IV SCH (08:45)
[2018-01-20 09:17] VITALS: TEMP 98
--- NOTE | 2018-01-20 10:06 | P.PCN ---
Date of Procedure: 01/20/18 Pathology: none sent Condition: stable Disposition: PACU Description of Procedure: PREOPERATIVE DIAGNOSIS: Lumbar spondylosis without myelopathy and facet arthropathy. POSTOPERATIVE DIAGNOSIS: Lumbar spondylosis without myelopathy and facet arthropathy. PROCEDURE DESCRIPTION: Patient presents for LEFT only L3-L4, L4-L5 and L5-S1 diagnostic medial branch blocks under fluoroscopic guidance. The procedure is performed using fluoroscopic guidance during needle placement to assure proper position and maximize safety. ANESTHESIA: Local with 1% lidocaine; conscious sedation EBL: Minimal PROCEDURE INDICATION: Patient with lumbar facet arthropathy signs and symptoms, here for left sided diagnostic medial branch block as he has had good relief from lumbar MBB and RFA in the past. Pt does not take any blood thinning medications. PROCEDURE DESCRIPTION: The patient was seen and identified in the preoperative area. Risks, benefits, complications, and alternatives were discussed with the patient (including but not limited to incomplete pain relief, bleeding, infection, nerve damage, and allergies to medications), the patient agreed to proceed with the procedure and signed the consent after all questions were answered. Patient was taken to the OR and time out was completed to verify proper patient, position, laterality of pain, and allergies. Pt was placed in the prone position and a pillow was placed under the abdomen to reduce lumbar lordosis. The lumbosacral area was prepped and draped in the usual sterile fashion. Using oblique fluoroscopy, the eye of the "Pablo dog" of left L4 vertebral body , which corresponds to the path of the medial branch originating from the level above, which is L3 in this case, was identified. Subsequently, a 22-gauge 3.5- inch spinal needle was inserted under fluoroscopic guidance toward the eye of the "Pablo dog" of the left L4 vertebral body, corresponding to the junction of the superior articular process and the transverse process of the pedicle of the same level. After needle tip confirmation on lateral view and after negative aspiration for CSF and blood and without paresthesias, 1 mL of a 3 ml solution of 2 ml 0.5% preservative-free bupivacaine and 40 mg Kenalog was injected. Subsequently the needle was withdrawn intact and the same procedure was repeated for the left L4 and left L5 medial branches which together with right L3 medial branch correspond to the sensory innervation of the left L3-L4, L4-L5 , and L5-S1 facet joints. Needle was withdrawn intact after each injection. At the end of the procedure, the skin was cleansed and bandages were applied. COMPLICATIONS: None. DISPOSITION/PLAN: The patient taken to the recovery area after the procedure in a stable condition for observation. Patient was reexamined prior to discharge and there were no issues. Patient was discharged home, accompanied by an adult, after meeting discharged criteria. Discharge instructions were give to the patient by the staff. Patient was specifically instructed not to drive today and to rest for the rest of the day. Patient will follow up for repeat procedure in 4-6 weeks.
--- NOTE | 2018-01-20 10:15 | FL ---
EXAMINATION TYPE: FL guided pain mgmt statistic DATE OF EXAM: 01/20/2018 HISTORY: Flouroscopy time 6 seconds of fluoroscopy provided. IMPRESSION: 1. Fluoroscopy time.
[2018-01-20 10:20] VITALS: RESP 20
[2018-01-20] MEDS ORDERED: IV FLUID CONTINUATION 1,000 ML IV ONE (10:33)
[2018-01-20 10:34] VITALS: BP 156/95; PULSE 60
== END 2018-01-20 10:39 | disposition home or self-care (01) ==
LOC: ORPAIN 07:42
PROVIDERS: ATTEND Anesthesiology
DX: M47.816 Spondylosis without myelopathy or radiculopathy, lumbar region (principal); M48.061 Spinal stenosis, lumbar region without neurogenic claudication; M54.16 Radiculopathy, lumbar region; Z79.891 Long term (current) use of opiate analgesic; F17.200 Nicotine dependence, unspecified, uncomplicated
CPT/HCPCS: 64493; 64494; 64495; J2250; J3301; J3010

== ENCOUNTER → 2018-02-11 | Outpatient (CLI) | payer MEDICARE ==
[2018-02-11 14:01] VITALS: BP 153/92; PULSE 68; RESP 18
--- NOTE | 2018-02-11 14:34 | P.PN ---
Subjective Progress Note Date: 02/11/18 Principal diagnosis: Lumbar spondylosis without myelopathy This is a 68-year-old gentleman with chronic history of lower back pain which responded favorably to a diagnostic lumbar medial branch block. The patient uses [place] 7.5 mg 1-2 times a day as needed for his pain. He denies any side effects to this medication. And he does not show any drug- seeking behavior. The patient denies any weakness in the upper or lower extremities or any paresthesia he also denies any bowel or bladder dysfunction. Objective - Vital Signs Vital signs: Vital Signs Temp Pulse 68 02/11/18 13:49 Resp 18 02/11/18 13:49 BP 153/92 02/11/18 13:49 Pulse Ox 98 02/11/18 13:49 Intake & Output 02/10/18 02/11/18 02/11/18 18:59 06:59 18:59 Weight 68.039 kg - EENT Eyes: Present: PERRLA - Respiratory Respiratory: bilateral: CTA - Cardiovascular Rhythm: regular - Neurologic Neurologic: Present: CNII-XII intact - Musculoskeletal Musculoskeletal: Present: gait normal - Psychiatric Psychiatric: Present: A&O x's 3, appropriate affect, intact judgment & insight Assessment and Plan Plan: This 68-year-old gentleman with chronic lower back pain due to lumbar spondylosis without myelopathy. The patient's pain responded favorably to the medial branch block on the lumbar area. This procedure will be repeated one more time before deciding on proceeding with RFA in the future. I will decrease the patient's prescription for [place] from 60 pills per month to 45 pills per month. I will give him prescription for 2 months of [place].
== END ==
LOC: PNWHC3 13:21
PROVIDERS: ATTEND Anesthesiology
DX: G89.29 Other chronic pain (principal); M47.816 Spondylosis without myelopathy or radiculopathy, lumbar region; Z79.891 Long term (current) use of opiate analgesic
CPT/HCPCS: 99211

== ENCOUNTER 2018-03-09 08:36 | Day surgery (SDC) | payer MEDICARE ==
[2018-03-03 11:18] VITALS: BMI 23.6
[2018-03-09 09:23] VITALS: TEMP 98
--- NOTE | 2018-03-09 10:05 | P.PCN ---
Date of Procedure: 03/09/18 Surgeon: Blu Eric Description of Procedure: PREOPERATIVE DIAGNOSIS : Lumbar spondylosis with Facet Arthropathy without myelopathy POSTOPERATIVE DIAGNOSIS: same PROCEDURE: Diagnostic bilateral L3 -4 , L4 -5 , and L5-S1 medial branch block under fluoroscopy ANESTHESIA: Local anesthetic; 2 mg of midazolam as Parker and 100 mcg of fentanyl Surgeon: Blu Eric MD PROCEDURE INDICATION: Chronic low back pain secondary to Facet arthropathy unresponsive to conservative treatment. He presents today for his second lumbar medial branch nerve block. He reports that the first injection was very helpful in reducing his symptoms. His pain relief is nearly completely however this lasted only a short period of time. If he received good benefit from today 's procedure, I would recommend proceeding to radio frequency ablation if the pain relief is not of long duration. PROCEDURE DESCRIPTION: the patient was seen and identified in the preop holding area , risks and benefits and possible complications of the procedure and alternative were discussed with the patient, and the patient agreed to proceed with the procedure and signed the consent IV was started and vital signs monitored during the procedure and fluoroscopy was used to maximize the benefit and accuracy of the needle placement, and sedation was given to decrease patient anxiety, patient was taken to the procedure room and placed in prone position vital signs monitored in the back prepped. Under strict sterile technique using a right oblique fluoroscopy ,the junction of the transverse process and the superior articulating process of the [] L3- 4 , L4- 5, and L5-S1 vertebra which corresponding to the fluoroscopy image of the eye of the Pablo dog on the block side for the medial branches and subsequently , after local infiltration of skin and subcutaneous tissues with lidocaine 1% one mL at each level ,then one 25-gauge Quincke-type needles was placed at the junction of the base of the transverse process and the superior articular process at the appropriate level, and the needle was advanced until the periosteum contacted, needle placement confirmed with AP oblique and lateral view and after appropriate needle placement confirmed, and after negative aspiration, 0.5 mL of Marcaine 0.5% mixed with 40 mg depomedrol in divided doses was injected at each level and the needle subsequently removed []. At the end of the procedure and the needles removed and a bandage applied after the skin was cleaned the cleaning solution patient taken to recovery room in stable condition and monitors in the recovery room for 20-30 minutes and discharged home in stable condition after discharge criteria met and patient will follow up with the pain clinic in 2-4 weeks EBL: Minimal COMPLICATION: None.
[2018-03-09] MEDS ORDERED: IV FLUID CONTINUATION 1,000 ML IV ONE (10:18)
[2018-03-09 10:23] VITALS: RESP 16
[2018-03-09 10:40] VITALS: BP 138/88; PULSE 64
--- NOTE | 2018-03-09 10:50 | FL ---
Fluoroscopy HISTORY: Pain 1 second fluoroscopy time supplied to the referring clinician. 1 intraoperative C-arm images documen t the procedure. See dictated report from anesthesia.
--- NOTE | 2018-03-12 06:05 | CDI ---
Date: 03/12/18 CDS/Model Technician Name: Elizabeth Friedman Phone: If any questions, call [facility] at [phone] Patient Name: Ranulfo Spring Admit Date: 03/09/18 Discharge Date: 03/09/18 ATTENTION: The [facility] Coding Staff appreciate your assistance in clarifying documentation. Please respond to the clarification below the line at the bottom and electronically sign. The [facility] Coding staff will review the response and follow-up if needed. Please note: Queries are made part of the Legal Health Record. If you have any questions, please contact the [facility]. Dear Dr. Eric, Please provide clarification of type of sedation provided. Under anesthesia on operative report it states local anesthetic and 2mg of midazolam and 100 mcg of Fentanyl are list. Nothing is checked under Anesthesia Plan on the Pain Procedure Record Thank you for your kind consideration conscious sedation (moderate sedation) was used for this patient MTDD
== END 2018-03-09 10:53 | disposition home or self-care (01) ==
LOC: ORPAIN 08:36
PROVIDERS: ATTEND Pain Medicine Pain Medicine
DX: G89.29 Other chronic pain (principal); M47.816 Spondylosis without myelopathy or radiculopathy, lumbar region
CPT/HCPCS: 64493; 64494; 64495; J2250; J1030; J3010

== ENCOUNTER → 2018-04-07 | Outpatient (CLI) | payer MEDICARE ==
[2018-04-07 14:48] VITALS: BP 128/73; PULSE 82; RESP 16
--- NOTE | 2018-04-07 14:54 | P.PN ---
Subjective Progress Note Date: 04/07/18 This is a 68-year-old male with history of axial lower back pain due to his lumbar spondylosis without myelopathy. The patient has been getting lumbar medial branch RFA which helps his pain significantly. The last diagnostic medial branch block give him at least 2 weeks of pain relief. The patient takes [place] once to twice a day if needed for his pain. In addition to above, 13-point review of systems is also negative for chest pain , shortness of breath, changes in vision, changes in hearing, new onset weakness , abdominal pain, diarrhea, extreme fatigue, malaise, fever, skin changes, homicidal or suicidal ideation, or bowel or bladder incontinence. Vital Signs: Reviewed in EMR Gen: AAOx3, NAD Pulm: resp unlabored Neck: supple, trachea midline Neuro: CN II-XII grossly intact, muscle strength lower extremities PRESERVED He has normal and symmetrical deep tendon reflexes in the lower extremities Imaging: Reviewed in EMR Assessment: 1. lumbar spondylosis without myelopathy Plan: 1. Explanation: Opioid and psychological risk scores were reviewed. Diagnoses , prognoses, and multiple treatment options including but not limited to physical therapy, interventional therapies, adjuvant medical therapies, narcotic medication therapies, and surgery were discussed with the patient and all questions were answered to the patient's satisfaction. 2. Opioid agreement: Patient has previously signed narcotic agreement, and was orally counseled to not overuse, abuse, divert, or cell medications, and to take them as prescribed by only 1 healthcare provider. The patient was also counseled to store opioid medications in a safe and preferably locked location. Patient was also counseled against driving or operating heavy equipment while using narcotic medications and also to not use alcohol or any illicit or recreational drugs. The patient verbalized understanding that lack of compliance with any of the above and likely result in failure to renew narcotic prescriptions, possible discharge from the clinic, and possible legal ramifications thereafter if indicated. 3. Counseling: The patient was counseled extensively on SMOKING CESSATION, BODY MASS INDEX, EXERCISE. Specifically, the patient was instructed regarding the importance of smoking cessation, obesity, and exercise in the context of both chronic pain and overall health. 4. Procedures: Schedule for right lumbar medial branch RFA under fluoroscopic guidance 5. Consultations: None 6. Investigations: MAPS appropriate 7. Medications: Continue with [place] 7.5 mg and Motrin 8. Disposition: Schedule her for the above-mentioned procedure Objective - Vital Signs Vital signs: Vital Signs Temp Pulse 82 04/07/18 14:43 Resp 16 04/07/18 14:43 BP 128/73 04/07/18 14:43 Pulse Ox 95 04/07/18 14:43 Intake & Output 04/06/18 04/07/18 04/07/18 18:59 06:59 18:59 Weight 72.575 kg
== END | disposition home or self-care (01) ==
LOC: PNWHC3 13:53
PROVIDERS: ATTEND Anesthesiology
DX: M47.816 Spondylosis without myelopathy or radiculopathy, lumbar region (principal); Z79.891 Long term (current) use of opiate analgesic
CPT/HCPCS: 99211

== ENCOUNTER 2018-04-27 07:52 | Day surgery (SDC) | payer MEDICARE ==
[2018-04-21 08:47] VITALS: BMI 24.3
[2018-04-27 08:20] VITALS: RESP 16; TEMP 97.1
[2018-04-27] MEDS ORDERED: LACTATED RINGERS 1,000 ML IV ONE (08:25)
[2018-04-27] MEDS ORDERED: LIDOCAINE 1% 20 ML VIAL (10MG/ML) FOR IV START INTRADERMA ONE (08:26)
--- NOTE | 2018-04-27 08:42 | P.PCN ---
Date of Procedure: 04/27/18 Description of Procedure: Date of Procedure: 04/27/18 Description of Procedure: Description of Procedure: Procedure(s) Performed: PREOPERATIVE DIAGNOSIS: 1. Lumbar Spondylosis with Facet Arthropathy without myelopathy. 2-. Lumber degenerative disc disease POSTOPERATIVE DIAGNOSIS: 1. Lumbar Spondylosis with Facet Arthropathy without myelopathy. 2-. Lumber degenerative disc disease PROCEDURES: Right Radiofrequency thermocoagulation, L3-L4, L4-L5, and L5-S1 medial branch, with fluoroscopic guidance SURGEON: Tal Castaneda M.D. ANESTHESIA: Moderate sedation with intravenous versed 2 mg and fentaneyl 100 mcg and local infiltration with lidocaine 1% 4 ml EBL: Minimal PROCEDURE INDICATION: The patient with low back pain secondary to lumbar facet arthropathy who had more than 50% relief of her pain with previous diagnostic lumbar medial branch block with bupivacaine. PROCEDURE DESCRIPTION / TECHNIQUE: The patient was seen and identified in the preoperative area. Risks, benefits, complications, including but not limited to risk of infection ,bleeding , allergic reactions to the medications and no complete pain releife , and alternatives were discussed with the patient, the patient agreed to proceed with the procedure and signed the consent. IV was started. Vital signs remained stable throughout the procedure. Patient was taken to the OR and time out was completed. The patient was placed in the prone position on the procedure table. The lumber area was prepped and draped in the usual sterile fashion. . Vital signs were closely monitored during the procedure .IV sedation was used during the procedure to decrease patients anxiety. Using AP and then oblique fluoroscopy, the ``eye of the Pablo dog corresponding to the connection between the superior and transverse articular processes of Left L3-L4, L4-L5, and L5-S1 were identified, marked, and localized with 1% lidocaine. Subsequently, a 18 guage 100-mm radiofrequency cannula with a 10-mm active tip was advanced guided by fluoroscopy to each of the ``eyes of the Pablo dog at right L3-L4, L4-L5, and L5-S1. Each site then underwent sensory testing at 50 Hz and 0 to 1 volt and motor testing at 2.5 Hz and 0 to 3 volt with local stimulation, but no radicular symptoms down the legs. Thereafter the left L3-L4, L4-L5, and L5-S1 sites underwent radiofrequency thermocoagulation at 80 degrees celsius for 90 seconds after injecting 0.5 ml of PF lidocaine 1%. then After the thermocoagulation done , 1 ml of the block solution containing Kenalog 40 mg and 4 ml of marain 0.5% was injected at the right L3-4 , L4-5 , and L5-S1, levels after negative aspiration of CSF and blood and with no paresthesias. Cannulas were retracted while injecting lidocaine 1% until the needle is out.. At the end of the procedure, the skin was cleansed and bandages were applied. COMPLICATIONS: No acute complications. DISPOSITION / PLANS: The patient was placed in a supine position and transferred to the recovery area in a stable condition for observation and was discharged from the recovery room after meeting discharge criteria. Home discharge instructions given to the patient by the staff. The patient was reexamined prior to discharge.
[2018-04-27] MEDS ORDERED: LACTATED RINGERS 1,000 ML IV SCH (08:45)
[2018-04-27] MEDS ORDERED: IV FLUID CONTINUATION 1,000 ML IV ONE (09:43)
--- NOTE | 2018-04-27 09:46 | FL ---
EXAMINATION TYPE: FL guided pain mgmt statistic DATE OF EXAM: 04/27/2018 HISTORY: Flouroscopy time 45 seconds of fluoroscopy provided. IMPRESSION: 1. Fluoroscopy time.
[2018-04-27 10:07] VITALS: BP 160/85; PULSE 65
== END 2018-04-27 10:17 | disposition home or self-care (01) ==
LOC: ORPAIN 07:52
PROVIDERS: ATTEND Anesthesiology
DX: M47.816 Spondylosis without myelopathy or radiculopathy, lumbar region (principal); Z91.030 Bee allergy status
CPT/HCPCS: 64635; 64636; J2250; J2001; J3010; 99152; 99211

== ENCOUNTER → 2018-05-25 | Outpatient (CLI) | payer MEDICARE ==
[2018-05-25 14:24] VITALS: PULSE 58; RESP 16
[2018-05-25 14:41] VITALS: BP 186/95
--- NOTE | 2018-05-25 14:58 | P.PN ---
Subjective Progress Note Date: 05/25/18 Principal diagnosis: Lumbar spondylosis without myelopathy This is a 68-year-old gentleman with history of axial lower back pain due to lumbar spondylosis without myelopathy. The patient is doing much better now after his last lumbar RFA. His pain is well controlled with [place] 7.5 mg 1-2 pills a day . Today, pt denies new-onset weakness, bowel/bladder incontinence, or any other signs or symptoms of cauda equina syndrome. There are no signs of acute intoxication, and no indications of medication diversion or overuse. In addition to above, 13-point review of systems is also negative for chest pain , shortness of breath, changes in vision, changes in hearing, new onset weakness , abdominal pain, diarrhea, extreme fatigue, malaise, fever, skin changes, homicidal or suicidal ideation, or bowel or bladder incontinence. Vital Signs: Reviewed in EMR Gen: AAOx3, NAD HEENT: PERRLA,hearing grossly normal Pulm: resp unlabored,CTA Heart:S1,S2, No Mur Neck: supple, trachea midline Neuro: CN II-XII grossly intact, Imaging: Reviewed in EMR/chart Assessment: Lumbar spondylosis without myelopathy Plan: 1. Explanation: Opioid and psychological risk scores were reviewed. Diagnoses , prognoses, and multiple treatment options including but not limited to physical therapy, interventional therapies, adjuvant medical therapies, narcotic medication therapies, and surgery were discussed with the patient and all questions were answered to the patient's satisfaction. 2. Opioid agreement: Signed with the patient and the patient is warned not to use opioids while driving or before driving and not to combine opioids with benzodiazepines or alcohol. 3. Counseling: The patient was counseled extensively on SMOKING CESSATION, BODY MASS INDEX, EXERCISE. Specifically, the patient was instructed regarding the importance of smoking cessation, obesity, and exercise in the context of both chronic pain and overall health. 4. Procedures: None at this point 5. Consultations: None 6. Investigations: None 7. Medications: Continue [place] 45 pills for the month 8. Disposition: Return to clinic in 8 weeks 9. Maps were reviewed and were appropriate. Objective - Vital Signs Vital signs: Vital Signs Temp Pulse 58 L 05/25/18 14:08 Resp 16 05/25/18 14:08 BP 186/95 05/25/18 14:41 Pulse Ox 98 05/25/18 14:08 Intake & Output 05/24/18 05/25/18 05/25/18 18:59 06:59 18:59 Weight 72.575 kg
== END | disposition home or self-care (01) ==
LOC: PNWHC3 13:28
PROVIDERS: ATTEND Anesthesiology
DX: M47.816 Spondylosis without myelopathy or radiculopathy, lumbar region (principal); Z79.891 Long term (current) use of opiate analgesic
CPT/HCPCS: 99211

== ENCOUNTER → 2018-07-20 | Outpatient (CLI) | payer MEDICARE ==
[2018-07-20 11:36] VITALS: BP 154/105; PULSE 66; RESP 16
--- NOTE | 2018-07-20 12:06 | P.PAINPG ---
Subjective Progress Note Date: 07/20/18 Principal diagnosis: Lumbar spondylosis Ranulfo presents today for follow-up visit for low back pain. He reports he is doing well. He reports he continues to have low back pain is times but reports significant improvement since his radiofrequency ablation. He reports today is VAS is 410. He reports he uses [place] only as needed and not every day. He reports on these uses 1-2 tablets in the use is none. Says pain is worse with bending over or sitting for prolonged periods reports he gets better as he moves around a little bit. He uses [place] 1-2 times per day as needed only as well as Motrin as needed. He reports he follows up with his primary care physician and has is labs checked annually for his physical. He understands the risks of using nonsteroidal anti-inflammatory medications for long periods I encouraged him to continue to stay hydrated. He denies any side effects from the medications Objective - Vital Signs Vital signs: Vital Signs Temp Pulse 66 07/20/18 11:27 Resp 16 07/20/18 11:27 BP 154/105 07/20/18 11:27 Pulse Ox 97 07/20/18 11:27 Intake & Output 07/19/18 07/20/18 07/20/18 18:59 06:59 18:59 Weight 74.843 kg - Exam PHYSICAL EXAM: Constitutional: Awake and alert no distress Cardiovascular exam: Regular rate, no lower extremity edema, palpable pulses bilaterally Respiratory exam: No audible wheezing, no accessory muscle usage Abdominal exam: Soft nontender Muscular skeletal exam: - Cervical spine: Nontender to palpation bilaterally. Range of motion is not limited. Her lungs is negative bilateral. Facet loading is negative bilaterally - Lumbar spine: Preserved lumbar lordosis. No changes in skin. Minimal tenderness to palpation bilateral. Patient has decreased range of motion in flexion and extension as well as lateral side bending. Straight leg raise is negative. Facet loading is negative. Nontender over the SI joints. ANMOL Negative, Gaenselons negative, SI Joint compression negative. Neuro exam: Normal sensation bilateral upper and lower extremities. Deep tendon reflexes are 2+ bilaterally. Hopper's is negative Psychiatric exam: Cooperative, good insight Assessment and Plan Assessment: Lumbar spondylosis without myelopathy Opioid dependence Plan: Refill the patient's medications for 2 months time. [place] 1-2 tabs per day as well as motrin PRN Maps was checked today urine drug screen is checked routinely and has been appropriate. opioid start talking form is in the chart PQRS Measure Charge Sheet Measure #130: Documentation of Current Meds in Medical Chart: Patient's medications documented in chart Measure #226: Tobacco Use: Screen & Cessation Intervention: Pt not a tobacco user Measure #111: Pneumonia Vaccination: Pneumococcal vaccine NOT administered or previously given Measure #47: Advance Care Plan: Advance care planning discussed & documented, plan or surrogate given Measure #412: Opioid Treatment Agreement: Documented signed opioid trtmnt agreemnt min once during opioid trtmnt Measure #408: Opioid Therapy Follow-up Evaluation: Patient had f/u eval minimum every 3 months during opioid therapy Measure #317: Preventitive Care & Scrn High Bld Press & F/U: Pre-hypertensive or hypertensive BP documented, pt will f/u with PCP Measure #131: Pain Assessment & Follow-up: Pain positive & plan documented PQRS Narrative: Smoking Status Former smoker Do You Want the Pneumonia Yes Vaccine AT THIS TIME? Narcotic Agreement Date Signed 02/03/17 Blood Pressure 154/105 Pain Intensity [Lower Back] 1 Scale Used Numeric (1 - 10) Hx Alcohol Use (MH) No Home Medications: Ambulatory Orders Omeprazole [PriLOSEC] 20 mg PO Q48H 01/24/14 Pravastatin Sodium [Pravachol] 40 mg PO HS 11/11/16 Aspirin [Adult Low Dose Aspirin EC] 81 mg PO DAILY 05/05/17 HYDROcodone/APAP 7.5-325MG [[place] 7.5-325] 1 each PO Q8HR PRN #60 tab 01/14/18 Ibuprofen [Motrin] 600 mg PO TID PRN #60 tab 01/14/18 Controlled Substance Measures - Controlled Substance Measures Is patient prescribed a controlled substance at discharge?: Yes When asked, does pt state using other controlled substances?: No If prescribed controlled substance>3 days was MAPS reviewed?: Yes If Rx opioid, was Start Talking consent form obtained?: Yes If opioid is for acute pain is fill amount 7 days or less?: Yes Was information provided regarding opioid addiction?: Yes
== END | disposition home or self-care (01) ==
LOC: PNWHC3 11:20
PROVIDERS: ATTEND Hospitalist
DX: M47.816 Spondylosis without myelopathy or radiculopathy, lumbar region (principal); F11.20 Opioid dependence, uncomplicated; Z87.891 Personal history of nicotine dependence; Z79.899 Other long term (current) drug therapy; Z79.82 Long term (current) use of aspirin
CPT/HCPCS: 99211

== ENCOUNTER → 2018-09-16 | Outpatient (CLI) | payer MEDICARE ==
[2018-09-16 12:16] VITALS: BP 164/100; PULSE 67; RESP 18
--- NOTE | 2018-09-24 12:17 | P.PN ---
Progress Note - Text Progress Note Date: 09/16/18 This is a 68-year-old male with history of chronic lower back pain. The patient 's pain is well controlled with a combination of interventional pain procedures and [place] up to 45 pills per month. The patient denies any new issues today. Patient denies any adverse effects to medications. There are no signs of narcotic diversion/misuse/overuse and no new-onset weakness, bowel/bladder incontinence, saddle anesthesia, or other signs or symptoms of cauda equina syndrome. Review of systems is negative for chest pain, shortness of breath, visual changes, dizziness, seizures, fever, nausea/vomiting, suicidal or homicidal ideation, and is positive as indicated in HPI above. Full list of medications, medical history, surgical history, family history, and allergies were reviewed and are documented in the patients electronic record. Physical Exam: Vital Signs: Reviewed in EMR General: Alert and oriented 3 in no apparent distress HEENT: Normocephalic, atraumatic, Neck: supple, trachea midline Pulm: respirations unlabored Muscle strength exam in the lower extremities within normal limits bilaterally Neurologic: CN II-XII grossly intact, no focal deficits Laboratory Studies: reviewed in EMR Imaging: reviewed in EMR Impression: Lumbar spondylosis without myelopathy Opioid dependence Plan: 1. Opioid and psychological risk tools and scores were reviewed. Diagnoses, prognoses, and multiple treatment options including but not limited to physical therapy, interventional therapies, adjunct medical therapies, narcotic medication therapies, and surgery were discussed with the patient and all questions were answered to the patients satisfaction. 2. Opioid agreement: Patient has previously signed narcotic agreement, and was again asked to re-read this document and will be given a copy to take home if requested. This document outlines the policies of the [facility]. It specifically counsels the patient to not misuse, overuse, abuse, divert, or sell medications, and to take them as prescribed by only one healthcare provider and store the medications in a safe and preferably locked location. This document also counsels against driving while using narcotic medications and also against using any alcohol or illicit or recreational drugs in conjunction with opioids. The patient also was reminded of the possible side effects of opioids including constipation, addiction, theoretical risk of increased incidence of malignancies with chronic use of opioids due to possible decreased body immunity. The patient verbalized understanding to nursing staff that lack of compliance with any of the above will likely result in failure to renew narcotic prescriptions, possible discharge from the clinic, and possible legal ramifications thereafter. 3. The patient was counseled extensively on tobacco abuse, body mass index, and exercise and the importance of smoking cessation, weight control, and regular exercise both in the context of chronic pain and also in terms of overall health. 4. Consultations: None 5. Interventional: None 6. Investigations: UDS, MAPS appropriate 7. Medications: Continue [place] 7.5 mg twice a day with 45 pills for the month 8. Disposition: Return to clinic in 8 weeks
== END | disposition home or self-care (01) ==
LOC: PNWHC3 11:42
PROVIDERS: ATTEND Anesthesiology
DX: M54.5 Low back pain (principal); M47.816 Spondylosis without myelopathy or radiculopathy, lumbar region; G89.29 Other chronic pain; F11.20 Opioid dependence, uncomplicated
CPT/HCPCS: 99211

== ENCOUNTER → 2018-11-11 | Outpatient (CLI) | payer MEDICARE ==
[2018-11-11 13:16] VITALS: BP 156/93; PULSE 65; RESP 18
--- NOTE | 2018-11-12 05:58 | P.PAINPG ---
Subjective Progress Note Date: 11/11/18 This is follow-up visit for this patient with a history of severe and chronic low back pain secondary to lumbar degenerative disc disease, lumbar spondylosis with facet arthropathy, We have done an interventional pain procedure radiofrequency ablation of the medial branch lumbar area, (few months ago ) , pain improve significantly , he continued to have low back pain with activity ,The patient currently on [place] 7.5/325 1 to 2 tablets a day , Motrin and Excedrin milligrams 3 times a day when necessary Patient denies any side effect of the medication , patient denies any excessive drowsiness or sleepiness, patient denies any suicidal ideation, Patient reported that the current medication is helping to control the pain and improve the activity of daily livings, Patient denies any motor or sensory deficit, denies any change in the bowel movement or urination, patient denies any fever or night sweats. Patient here today for follow-up visit and medication refill Objective - Vital Signs Vital signs: Vital Signs Temp Pulse 65 11/11/18 13:09 Resp 18 11/11/18 13:09 BP 156/93 11/11/18 13:09 Pulse Ox Intake & Output 11/11/18 11/11/18 11/12/18 06:59 18:59 06:59 Weight 74.843 kg - Exam Physical Examinations : -Constitutiona : Cooperative , not in acute distress . -HEENT : nech ; supple , no Lymphadenopathy , normal thyroid size . eyes : no ptosis , no icterus, no photophobia . - musculoskeltal : moter stegnth lower extremities ,thigh and legs 5/5 Right side , 5/5 Left side Assessment and Plan Plan: Assessment and plan= chronic low back pain secondary to lumbar degenerative disc disease , lumbar spondylosis with lumbar facet arthropathy . chronic and current use of high-risk medication (opioids) Patient denies any side effects of the current pain medication and the current treatment/medication helping the patient to do activity of daily living , Diagnoses, prognosis, treatment options, including but not limited to physical therapy, medication management, interventional therapies, and surgery, were discussed with the patient All the questions answered The narcotic consent was signed and patient agreed and understood the side effects and complications of opioid treatment. Patient signed the narcotic agreement, and was orally counseled, not to overuse, not to abuse, not to Divert , not tp sell pain medication, and to take it as prescribed only, Patient was counseled not to drive or operate heavy equipment while using narcotic medication, and advised not to use alcohol or any Illicit drugs while using the narcotis. understanding that lack of compliance with any of the above instructions, will likely to cause discharge from, the pain service, not to renew his narcotic prescriptions MAPS Reviwed and it was apropriate . Medication managements= patient will be given prescription refills for [place] 7.5/325 every 12 hours dispense 45 over 1 refill, Motrin 600 mg 3 times a day dispense 90 with 1 refill He will follow up in the pain clinic in 2 months , Time with Patient: Less than 30 PQRS Measure Charge Sheet Measure #130: Documentation of Current Meds in Medical Chart: Patient's medications documented in chart Measure #226: Tobacco Use: Screen & Cessation Intervention: Pt not a tobacco user Measure #111: Pneumonia Vaccination: Pneumococcal vaccine administered or previously received Measure #47: Advance Care Plan: Advance care planning discussed & documented, pt chose/unable to give Measure #412: Opioid Treatment Agreement: Documented signed opioid trtmnt agreemnt min once during opioid trtmnt Measure #408: Opioid Therapy Follow-up Evaluation: Patient had f/u eval minimum every 3 months during opioid therapy Measure #317: Preventitive Care & Scrn High Bld Press & F/U: Pre-hypertensive or hypertensive BP documented, pt will f/u with PCP Measure #128: Body Mass Index (BMI) Screening & Follow-up: BMI documented ABOVE normal parameters - f/u documented Measure #131: Pain Assessment & Follow-up: Pain positive & plan documented, Follow-up scheduled Measure #431: Unhealthy Alcohol Use Preventative Care & Scrn: Patient not identified as an unhealthy alcohol user PQRS Narrative: Smoking Status Former smoker Do You Want the Pneumonia Vaccine Up to Date Vaccine AT THIS TIME? Narcotic Agreement Date Signed 02/03/17 Blood Pressure 156/93 Pain Intensity [Left Lower 2 Back] Scale Used Numeric (1 - 10) Hx Alcohol Use (MH) No Home Medications: Ambulatory Orders Omeprazole [PriLOSEC] 20 mg PO Q48H 01/24/14 Pravastatin Sodium [Pravachol] 40 mg PO HS 11/11/16 Aspirin [Adult Low Dose Aspirin EC] 81 mg PO DAILY 05/05/17 HYDROcodone/APAP 7.5-325MG [[place] 7.5-325] 1 each PO Q8HR PRN #60 tab 01/14/18 Ibuprofen [Motrin] 600 mg PO TID PRN #60 tab 01/14/18 Controlled Substance Measures - Controlled Substance Measures Is patient prescribed a controlled substance at discharge?: Yes When asked, does pt state using other controlled substances?: No If prescribed controlled substance>3 days was MAPS reviewed?: Yes If Rx opioid, was Start Talking consent form obtained?: Yes If opioid is for acute pain is fill amount 7 days or less?: No Was information provided regarding opioid addiction?: Yes
== END ==
LOC: PNWHC3 12:52
PROVIDERS: ATTEND Specialist
DX: G89.29 Other chronic pain (principal); M51.36 Other intervertebral disc degeneration, lumbar region; M47.816 Spondylosis without myelopathy or radiculopathy, lumbar region; M46.96 Unspecified inflammatory spondylopathy, lumbar region; Z79.891 Long term (current) use of opiate analgesic; Z79.899 Other long term (current) drug therapy; Z79.82 Long term (current) use of aspirin; Z87.891 Personal history of nicotine dependence
CPT/HCPCS: 99211

== ENCOUNTER → 2019-01-06 | Outpatient (CLI) | payer MEDICARE ==
[2019-01-06 12:00] VITALS: BP 188/81; PULSE 70; RESP 18
--- NOTE | 2019-01-06 12:20 | P.PAINPG ---
Subjective Progress Note Date: 01/06/19 Principal diagnosis: Lumbar spondylosis This a very pleasant 69-year-old gentleman with a history of intractable low back pain. He is undergone previous diagnostic medial branch nerve blocks as well as lumbar radio frequency ablation the past. He reports a radio frequency ablation was very helpful for him. He currently is maintaining his pain management with ibuprofen and [place]. He is requesting refill of both these medications. He reports that these do help his pain significant only. Objective - Vital Signs Vital signs: Vital Signs Temp Pulse 70 01/06/19 11:56 Resp 18 01/06/19 11:56 BP 188/81 01/06/19 11:56 Pulse Ox 95 01/06/19 11:56 Intake & Output 01/05/19 01/06/19 01/06/19 18:59 06:59 18:59 Weight 74.843 kg - Exam General: The patient is alert and oriented. Patient is not sedated Patient answers all question appropriately. Cardiac: Heart is regular in rate and rhythm Respiratory: Clear to auscultation. No audible wheezes. Abdomen: Soft nontender nondistended. Musculoskeletal: Strength is normal bilaterally. Sensation is normal bilaterally. Straight leg raise is negative bilaterally. Facet loading edd uvers are positive bilaterally but worse on the right. Neurological: Reflexes are preserved and symmetric bilaterally. Assessment and Plan (1) Spondylosis without myelopathy or radiculopathy, lumbar region Current Visit: Yes Status: Acute Code(s): M47.816 - SPONDYLOSIS W/O MYELO ARI OR RADICULOPATHY, LUMBAR REGION SNOMED Code(s): 96193300 Plan: Plan of Care 1. Medications: I will refill the patient's [place] and Motrin for him. I discussed with him specifically the risks of both of these medications. I've advised him to use them as little as possible. I have reviewed the patient's MAPS report and it reveals expected results. Patient has signed an opiate agreement as well as opiate consent for treatment in our clinic. They understand the risks and benefits of opiate medications. They are aware of the potential for addiction. 2. Interventions: We will schedule the patient for a right lumbar radio arden quency ablation in the future whenever he is wanting to schedule this. He did get significant relief from this in the past. 3. Referrals: None 4. Testing: None 5. Follow-up: 2 months for medication management PQRS Measure Charge Sheet Measure #130: Documentation of Current Meds in Medical Chart: Patient's medications documented in chart Measure #226: Tobacco Use: Screen & Cessation Intervention: Pt screened for tobacco use AND intervention given Measure #111: Pneumonia Vaccination: Pneumococcal vaccine NOT administered or previously given Measure #47: Advance Care Plan: Advance care planning discussed & documented, plan or surrogate given Measure #412: Opioid Treatment Agreement: Documented signed opioid trtmnt agreemnt min once during opioid trtmnt Measure #408: Opioid Therapy Follow-up Evaluation: Patient had f/u eval minimum every 3 months during opioid therapy Measure #317: Preventitive Care & Scrn High Bld Press & F/U: Pre-hypertensive or hypertensive BP documented, pt will f/u with PCP Measure #128: Body Mass Index (BMI) Screening & Follow-up: BMI documented ABOVE normal parameters - f/u documented Measure #131: Pain Assessment & Follow-up: Pain positive & plan documented Measure #431: Unhealthy Alcohol Use Preventative Care & Scrn: Patient not identified as an unhealthy alcohol user PQRS Narrative: Smoking Status Former smoker Do You Want the Pneumonia Yes Vaccine AT THIS TIME? Narcotic Agreement Date Signed 02/03/17 Blood Pressure 188/81 Pain Intensity [Right Lower 3 Back] Hx Alcohol Use (MH) No Home Medications: Ambulatory Orders Omeprazole [PriLOSEC] 20 mg PO Q48H 01/24/14 Pravastatin Sodium [Pravachol] 40 mg PO HS 11/11/16 Aspirin [Adult Low Dose Aspirin EC] 81 mg PO DAILY 05/05/17 HYDROcodone/APAP 7.5-325MG [[place] 7.5-325] 1 each PO Q8HR PRN #60 tab 01/14/18 Ibuprofen [Motrin] 600 mg PO TID PRN #60 tab 01/14/18 Controlled Substance Measures - Controlled Substance Measures Is patient prescribed a controlled substance at discharge?: Yes When asked, does pt state using other controlled substances?: No If prescribed controlled substance>3 days was MAPS reviewed?: Yes
== END | disposition home or self-care (01) ==
LOC: PNWHC3 11:47
PROVIDERS: ATTEND Pain Medicine Pain Medicine
DX: M47.816 Spondylosis without myelopathy or radiculopathy, lumbar region (principal); Z87.891 Personal history of nicotine dependence; Z98.890 Other specified postprocedural states; Z79.1 Long term (current) use of non-steroidal anti-inflammatories (NSAID); Z79.891 Long term (current) use of opiate analgesic; Z79.82 Long term (current) use of aspirin; Z79.899 Other long term (current) drug therapy
CPT/HCPCS: 99211

== ENCOUNTER → 2019-03-03 | Outpatient (CLI) | payer MEDICARE ==
[2019-03-03 12:22] VITALS: BP 118/100; PULSE 64; RESP 18
--- NOTE | 2019-03-03 12:42 | P.PN ---
Subjective Progress Note Date: 03/03/19 This is a 69-year-old gentleman with chronic history of lower back pain however recently this pain has been radiating down his legs to the feet with no numbness or tingling and no weakness. He also denies any bowel or bladder dysfunction. His lower back pain has been well-controlled with a combination of [place] 45 pills per month and interventional pain procedures. Today, pt denies new-onset weakness, bowel/bladder incontinence, or any other signs or symptoms of cauda equina syndrome. There are no signs of acute intoxication, and no indications of medication diversion or overuse. In addition to above, 13-point review of systems is also negative for chest isaura n, shortness of breath, changes in vision, changes in hearing, new onset weakness, abdominal pain, diarrhea, extreme fatigue, malaise, fever, skin changes, homicidal or suicidal ideation, or bowel or bladder incontinence. Vital Signs: Reviewed in EMR Gen: AAOx3, NAD HEENT: PERRLA,hearing grossly normal Pulm: resp unlabored, Heart: Regular Neck: supple, trachea midline Neuro exam of the lower extremities: Normal muscle strength and deep tendon reflexes Straight leg raising test: Rodo's test: Range of motion of the lumbar spine: Facet loading test: Tenderness in the paravertebral musculature: Positive bilaterally in the lumbar paravertebral area Neuro: CN II-XII grossly intact, Imaging: Reviewed in EMR/chart Assessment: Lumbar spondylosis without myelopathy New onset Lumbar radiculitis Plan: 1. Explanation: Opioid and psychological risk scores were reviewed. Diagnoses, prognoses, and multiple treatment options including but not limited to physical therapy, interventional therapies, adjuvant medical therapies, narcotic medication therapies, and surgery were discussed with the patient and all questions were answered to the patient's satisfaction. 2. Opioid agreement: Signed with the patient and the patient is warned not to use opioids while driving or before driving and not to combine opioids with benzodiazepines or alcohol. 3. Counseling: The patient was counseled extensively on SMOKING CESSATION, BODY MASS INDEX, EXERCISE. Specifically, the patient was instructed regarding the importance of smoking cessation, obesity, and exercise in the context of both chronic pain and overall health. 4. Procedures: None at this point 5. Consultations: None 6. Investigations: I'll send the patient to have an MRI of the lumbar spine with and without contrast 7. Medications: Continue [place] 7.5 mg twice a day as needed for pain and will give her prescription for 45 pills with 1 refill 8. Disposition: Return to clinic in 8 weeks 9. Maps were reviewed and were appropriate. PQRS measures: 1-Patient's medications are documented in the chart. 2-Tobacco use is negative, counseling given 3-Patient has not had a pneumococcal vaccine. 4-Advanced care planning discussed, patient unable to give 5-Opioid contract signed with the patient. 6-Pain positive, follow-up visit or procedure scheduled 7-Patient's blood pressure measured and documented above/ normal limits. The patient will follow up with his primary care physician. 8-Patient's weight was measured, and body mass index within the normal limits, and counseling was done. Patient instructed to follow up with PCP. 9-Patient WAS NOT identified as an unhealthy alcohol user. Controlled Substance Measures Is patient prescribed a controlled substance at discharge?: Yes When asked, does pt state using other controlled substances?: No If prescribed controlled substance>3 days was MAPS reviewed?: Yes If Rx opioid, was Start Talking consent form obtained?: Yes If opioid is for acute pain is fill amount 7 days or less?: No Was information provided regarding opioid addiction?: Yes Objective - Vital Signs Vital signs: Vital Signs Temp Pulse 64 03/03/19 12:16 Resp 18 03/03/19 12:16 BP 118/100 03/03/19 12:16 Pulse Ox 95 03/03/19 12:16 Intake & Output 03/02/19 03/03/19 03/03/19 18:59 06:59 18:59 Weight 80.286 kg
== END | disposition home or self-care (01) ==
LOC: PNWHC3 11:54
PROVIDERS: ATTEND Anesthesiology
DX: G89.29 Other chronic pain (principal); M47.26 Other spondylosis with radiculopathy, lumbar region; Z79.891 Long term (current) use of opiate analgesic
CPT/HCPCS: 99211

== ENCOUNTER → 2019-03-31 | Outpatient (CLI) | payer MEDICARE ==
[2019-03-31 09:02] VITALS: BP 107/63; PULSE 61; RESP 18
--- NOTE | 2019-03-31 09:26 | P.PAINPG ---
Subjective Progress Note Date: 03/31/19 This is follow-up visit for this patient with a history of severe and chronic low back pain secondary to lumbar degenerative disc disease, lumbar spondylosis with facet arthropathy, We have done an interventional pain procedure radiofrequency ablation of the medial branch lumbar area, which was done last year, she'll get excellent pain relief , but recently he reported that he has increased pain on the low back area with radiation to the posterior aspect of his right lower extremity, pain mainly on the low back area on the right side ,The patient currently on [place] 7.5/325 1 to 2 tablets a day , Motrin 600 mg 3 times a day when necessary Patient denies any side effect of the medication , patient denies any excessive drowsiness or sleepiness, patient denies any suicidal ideation, Patient reported that the current medication is helping to control the pain and improve the activity of daily livings, Patient denies any motor or sensory deficit, denies any change in the bowel movement or urination, patient denies any fever or night sweats. Physical Examinations : -Constitutiona : Cooperative , not in acute distress . -HEENT : nech : supple , no Lymphadenopathy , normal thyroid size . eyes : no ptosis , no icterus, no photophobia .. - neurologic : Cranial nerve II to XII intact , no focal neurological deffecit . -psychatric : alert , oriented X 3 , appropriate affect , intact judgment and insight . Lumber spine moter stegnth lower extremities ,thigh and legs 5/5 Right side , 5/5 Left side deep tendon reflexes : normal Knee Jerk , normal ankle Jerk positive lumber facet Loading Test Range of motion of the lumbar spine Flexion 30 degrees, extension 10 degrees strait leg raising test , positive at degree Fabere test positive RT and positive LT MRI of the lumbar spine done at [facility]= L3 4 L4 5 bulging disc disease and multilevel lumbar spondylosis with lumbar facet arthropathy Assessment and plan= chronic low back pain secondary to lumbar degenerative disc disease , lumbar spondylosis with lumbar facet arthropathy . chronic and current use of high-risk medication (opioids) Patient denies any side effects of the current pain medication and the current treatment/medication helping the patient to do activity of daily living , Diagnoses, prognosis, treatment options, including but not limited to physical therapy, medication management, interventional therapies, and surgery, were discussed with the patient All the questions answered The narcotic consent was signed and patient agreed and understood the side effects and complications of opioid treatment. Patient signed the narcotic agreement, and was orally counseled, not to overuse, not to abuse, not to Divert , not tp sell pain medication, and to take it as prescribed only, Patient was counseled not to drive or operate heavy equipment while using narcotic medication, and advised not to use alcohol or any Illicit drugs while using the narcotis. understanding that lack of compliance with any of the above instructions, will likely to cause discharge from, the pain service, not to renew his narcotic prescriptions MAPS Reviwed and it was apropriate . Medication managements= she'll continue to use his current pain medication [place] 7.5/325 when necessary twice a day, Motrin 600 mg every 8 hours. Procedure= patient will be scheduled to have radiofrequency ablation of the right-sided medial branch lumbar area at L3 4, L4 5, L5-S1 under fluoroscopy guidance Objective - Vital Signs Vital signs: Vital Signs Temp Pulse 61 03/31/19 08:57 Resp 18 03/31/19 08:57 BP 107/63 03/31/19 08:57 Pulse Ox 96 03/31/19 08:57 Intake & Output 03/30/19 03/31/19 03/31/19 18:59 06:59 18:59 Weight 79.379 kg PQRS Measure Charge Sheet Measure #130: Documentation of Current Meds in Medical Chart: Patient's medications documented in chart Measure #226: Tobacco Use: Screen & Cessation Intervention: Pt not a tobacco user Measure #111: Pneumonia Vaccination: Pneumococcal vaccine administered or previously received Measure #47: Advance Care Plan: Advance care planning discussed & documented, pt chose/unable to give Measure #412: Opioid Treatment Agreement: Documented signed opioid trtmnt agreemnt min once during opioid trtmnt Measure #408: Opioid Therapy Follow-up Evaluation: Patient had f/u eval minimum every 3 months during opioid therapy Measure #317: Preventitive Care & Scrn High Bld Press & F/U: Normal blood pressure, f/u not required Measure #128: Body Mass Index (BMI) Screening & Follow-up: BMI documented ABOVE normal parameters - f/u documented Measure #131: Pain Assessment & Follow-up: Pain positive & plan documented, Follow-up scheduled Measure #431: Unhealthy Alcohol Use Preventative Care & Scrn: Patient not identified as an unhealthy alcohol user PQRS Narrative: Smoking Status Former smoker Narcotic Agreement Date Signed 11/11/18 Blood Pressure 107/63 Pain Intensity [Right Lower 5 Back] Scale Used Numeric (1 - 10) Hx Alcohol Use (MH) No Home Medications: Ambulatory Orders Omeprazole [PriLOSEC] 20 mg PO Q48H 01/24/14 Pravastatin Sodium [Pravachol] 40 mg PO HS 11/11/16 Aspirin [Adult Low Dose Aspirin EC] 81 mg PO DAILY 05/05/17 HYDROcodone/APAP 7.5-325MG [[place] 7.5-325] 1 each PO Q8HR PRN #60 tab 01/14/18 Ibuprofen [Motrin] 600 mg PO TID PRN #60 tab 01/14/18 Citalopram Hydrobromide [CeleXA] 20 mg PO DAILY 03/31/19 Controlled Substance Measures - Controlled Substance Measures Is patient prescribed a controlled substance at discharge?: Yes When asked, does pt state using other controlled substances?: No If prescribed controlled substance>3 days was MAPS reviewed?: Yes If Rx opioid, was Start Talking consent form obtained?: Yes If opioid is for acute pain is fill amount 7 days or less?: No Was information provided regarding opioid addiction?: Yes
== END | disposition home or self-care (01) ==
LOC: PNWHC3 08:49
PROVIDERS: ATTEND Specialist
DX: G89.29 Other chronic pain (principal); M51.36 Other intervertebral disc degeneration, lumbar region; M47.816 Spondylosis without myelopathy or radiculopathy, lumbar region; M46.96 Unspecified inflammatory spondylopathy, lumbar region; Z87.891 Personal history of nicotine dependence; Z98.890 Other specified postprocedural states; Z79.891 Long term (current) use of opiate analgesic; Z79.82 Long term (current) use of aspirin; Z79.899 Other long term (current) drug therapy
CPT/HCPCS: 99211

== ENCOUNTER 2019-04-27 07:44 | Day surgery (SDC) | payer MEDICARE ==
[2019-04-22 10:52] VITALS: BMI 25.8
[2019-04-27 08:13] VITALS: TEMP 97.8
[2019-04-27] MEDS ORDERED: LACTATED RINGERS 1,000 ML IV ONE (08:19)
[2019-04-27] MEDS ORDERED: LIDOCAINE 1% 20 ML VIAL (10MG/ML) FOR IV START INTRADERMA ONE (08:19)
--- NOTE | 2019-04-27 10:02 | P.PCN ---
Date of Procedure: 04/27/19 Procedure(s) Performed: PREOPERATIVE DIAGNOSIS: 1-Lumbar Spondylosis with Facet Arthropathy without myelopathy. 2- Lumber degenerative disc disease POSTOPERATIVE DIAGNOSIS: 1- Lumbar Spondylosis with Facet Arthropathy without myelopathy. 2- Lumber degenerative disc disease PROCEDURES : Right Radiofrequency thermocoagulation, L3-L4, L4-L5, and L5-S1 medial branch, with fluoroscopic guidance (fluoroscopy images available in the radiology department) ANESTHESIA: Moderate sedation with intravenous versed 2 mg and fentaneyl 100 mcg, and local infiltration with Ropivacaine 0.5 % . EBL: Minimal PROCEDURE INDICATION: The patient with low back pain secondary to lumbar facet arthropathy who had more than 50% relief of her pain with previous diagnostic lumbar medial branch block with bupivacaine. PROCEDURE DESCRIPTION / TECHNIQUE: The patient was seen and identified in the preoperative area. Risks, benefits, complications, including but not limited to risk of infection ,bleeding , allergic reactions to the medications and no complete pain releife , and alternatives were discussed with the patient, the patient agreed to proceed with the procedure and signed the consent. IV was started. Vital signs remained stable throughout the procedure. Patient was taken to the OR and time out was completed. The patient was placed in the prone position on the procedure table. The lumber area was prepped and draped in the usual sterile fashion. . Vital signs were closely monitored during the procedure .IV sedation was used during the procedure to decrease patients anxiety. Using AP and then oblique fluoroscopy, the ``eye of the Pablo dog corresponding to the connection between the superior and transverse articular processes of right L3, L4, and L5 were identified, marked, and localized with 1% lidocaine. Subsequently, a [id number] radiofrequency cannula with a 10- mm active tip was advanced guided by fluoroscopy to each of the``eyes of the Pablo dog at right L3, L4, and L5. Each site then underwent sensory testing at 50 Hz and 0 to 1 volt and motor testing at 2.5 Hz and 0 to 3 volt with local stimulation, but no radicular symptoms down the legs. Thereafter the right L3-4, L4-5, and L5-S1 sites underwent radiofrequency thermocoagulation at 80 degrees celsius for 90 seconds after injecting 0.5 ml of PF Ropivacaine 1ml, then after the thermocoagulation done , 1 ml of the block solution containing Depo-Medrol 40 mg and 3 ml of Ropivacaine 0.5% was injected at the right L3-4 , L4-5 , and L5-S1, levels after negative aspiration of CSF and blood and with no paresthesias. Cannulas were retracted while injecting lidocaine 1% until the needle is out. At the end of the procedure, the skin was cleansed and bandages were applied. COMPLICATIONS: No acute complications. DISPOSITION / PLANS: The patient was placed in a supine position and vincent sferred to the recovery area in a stable condition for observation and was discharged from the recovery room after meeting discharge criteria. Home discharge instructions given to the patient by the staff. The patient was reexamined prior to discharge. The patient will schedule a follow up in the clinic in 2-4 weeks.
[2019-04-27] MEDS ORDERED: IV FLUID CONTINUATION 1,000 ML IV ONE (10:07)
[2019-04-27 10:26] VITALS: BP 167/95; PULSE 62; RESP 16
--- NOTE | 2019-04-27 10:37 | FL ---
Fluoroscopy HISTORY: Pain 5 seconds fluoroscopy time supplied to the referring clinician. 2 intraoperative C-arm images docume nt the procedure. See dictated report from anesthesia.
== END 2019-04-27 10:38 | disposition home or self-care (01) ==
LOC: ORPAIN 07:44
PROVIDERS: ATTEND Specialist
DX: M47.816 Spondylosis without myelopathy or radiculopathy, lumbar region (principal); M51.36 Other intervertebral disc degeneration, lumbar region; I10 Essential (primary) hypertension
CPT/HCPCS: 64635; 64636 ×2; J2250; J1030; J3010; 99152

== ENCOUNTER → 2019-05-03 | Outpatient (CLI) | payer MEDICARE ==
[2019-05-03 12:52] VITALS: BP 156/101; PULSE 50; RESP 16
--- NOTE | 2019-05-03 15:16 | P.PAINPG ---
Subjective Progress Note Date: 05/03/19 This is a 69-year-old man who presents for follow-up after right lumbar RFA. He is extremely happy with the results and has had essentially 100% pain relief. He is able to be more active now. He has reduced his narcotic use in fact he has not used any narcotics since his procedure. Otherwise he has no new complaints. Objective - Vital Signs Vital signs: Vital Signs Temp Pulse 50 L 05/03/19 12:45 Resp 16 05/03/19 12:45 BP 156/101 05/03/19 12:45 Pulse Ox Intake & Output 05/02/19 05/03/19 05/03/19 18:59 06:59 18:59 Weight 79.379 kg - Exam Vital Signs: Reviewed in EMR GENERAL: Well appearing, in no acute distress, PSYCH: Mood and affect is appropriate. Awake, alert, and oriented SKIN: Skin color, texture, turgor normal, no rashes or lesions HEENT: Normocephalic, atraumatic. EOM intact CV: No pedal edema RESP: Respirations are unlabored, no audible wheezing GI: Abdomen non-distended MUSCULOSKELETAL: Bilateral upper and lower extremity strength is normal and symmetric. No atrophy or tone abnormalities are noted. Lumbar spine: Minimal pain to palpation over the lumbar spine and paraspinous muscles. Negative for pain with facet loading and back extension/rotation. Buttocks: No pain to palpation over the PSIS, Extremities: Peripheral joint ROM is full and pain free without obvious instability or laxity in all four extremities. No edema or skin discolorations noted. Gait: Gait is anantalgic NEUR: No loss of sensation is noted. Cranial nerves are grossly intact. Assessment and Plan Assessment: Assessment: 1. Lumbar spondylosis without myelopathy 2. Chronic opioid use Plan: 1. Explanation: Opioid and psychological risk scores were reviewed. Diagnoses, prognoses, and multiple treatment options including but not limited to physical therapy, interventional therapies, adjuvant medical therapies, narcotic medication therapies, and surgery were discussed with the patient and all questions were answered to the patient's satisfaction. 2. Opioid agreement: In place 3. Counseling: Specifically, the patient was instructed regarding the i mportance of weight control, and exercise in the context of both chronic pain and overall health. 4. Procedures: None 5. Consultations: None 6. Investigations: None 7. Medications: Given he has having minimal pain I further reduce his opiate dosing. I reduced his [place] from 7.5/325 to 5/325, he received the same number of tablets which is 45 tablets per month 8. Disposition: Be seen in 8 weeks for continued medical management , PQRS Measure Charge Sheet Measure #226: Tobacco Use: Screen & Cessation Intervention: Pt not a tobacco user Measure #111: Pneumonia Vaccination: Pneumococcal vaccine administered or previously received Measure #47: Advance Care Plan: Advance care planning discussed & documented, pt chose/unable to give Measure #412: Opioid Treatment Agreement: Documented signed opioid trtmnt agreemnt min once during opioid trtmnt Measure #131: Pain Assessment & Follow-up: Pain positive & plan documented, Follow-up scheduled Measure #431: Unhealthy Alcohol Use Preventative Care & Scrn: Patient not identified as an unhealthy alcohol user PQRS Narrative: Smoking Status Former smoker Narcotic Agreement Date Signed 11/11/18 Blood Pressure 156/101 Pain Intensity [None] 0 Scale Used Numeric (1 - 10) Hx Alcohol Use (MH) No Home Medications: Ambulatory Orders Omeprazole [PriLOSEC] 20 mg PO Q48H 01/24/14 Pravastatin Sodium [Pravachol] 80 mg PO HS 11/11/16 Aspirin [Adult Low Dose Aspirin EC] 81 mg PO DAILY 05/05/17 Ibuprofen [Motrin] 600 mg PO TID PRN #60 tab 01/14/18 Citalopram Hydrobromide [CeleXA] 20 mg PO DAILY 03/31/19 HYDROcodone/APAP 5-325MG [[place] 5-325] 1 tab PO BID PRN 05/03/19 Controlled Substance Measures - Controlled Substance Measures Is patient prescribed a controlled substance at discharge?: Yes When asked, does pt state using other controlled substances?: No If prescribed controlled substance>3 days was MAPS reviewed?: Yes If Rx opioid, was Start Talking consent form obtained?: Yes If opioid is for acute pain is fill amount 7 days or less?: No Was information provided regarding opioid addiction?: Yes
== END | disposition home or self-care (01) ==
LOC: PNWHC3 11:48
PROVIDERS: ATTEND Student in an Organized Health Care Education/Training Program
DX: M47.816 Spondylosis without myelopathy or radiculopathy, lumbar region (principal); F11.90 Opioid use, unspecified, uncomplicated; Z87.891 Personal history of nicotine dependence
CPT/HCPCS: 80307; G0482; G0463; 99211

== ENCOUNTER → 2019-06-28 | Outpatient (CLI) | payer MEDICARE ==
[2019-06-28 13:25] VITALS: BP 127/69; PULSE 72; RESP 18
--- NOTE | 2019-06-28 13:50 | P.PAINPG ---
Subjective Progress Note Date: 06/28/19 This is follow-up visit for this patient with a history of severe and chronic low back pain secondary to lumbar degenerative disc disease, lumbar spondylosis with facet arthropathy, We have done an interventional pain procedure radiofrequency ablation of the medial branch lumbar area, pain improve significantly , he continued to have low back pain with activity ,The patient currently on [place] 5/325 1 to 2 tablets a day , Motrin 600 mg twice a day when necessary Patient denies any side effect of the medication , patient denies any excessive drowsiness or sleepiness, patient denies any suicidal ideation, Patient reported that the current medication is helping to control the pain and improve the activity of daily livings, Patient denies any motor or sensory deficit, denies any change in the bowel movement or urination, patient denies any fever or night sweats. Patient here today for follow-up visit and medication refill Objective - Vital Signs Vital signs: Vital Signs Temp Pulse 72 06/28/19 13:20 Resp 18 06/28/19 13:20 BP 127/69 06/28/19 13:20 Pulse Ox 95 06/28/19 13:20 - Exam Physical Examinations : -Constitutiona : Cooperative , not in acute distress . -HEENT : nech : supple , no Lymphadenopathy , normal thyroid size . eyes : no ptosis , no icterus, no photophobia . - neurologic : Cranial nerve II to XII intact , no focal neurological deffecit . -psychatric : alert , oriented X 3 , appropriate affect , intact judgment and insight . -Lymphatic : no Lymphadenopathy . - musculoskeltal : Lumber spine moter stegnth lower extremities ,thigh and legs 5/5 Right side , 5/5 Left side Assessment and Plan Plan: Assessment and plan= chronic low back pain secondary to lumbar degenerative disc disease , lumbar spondylosis with lumbar facet arthropathy . Patient improved after radiofrequency ablation of the medial branch lumbar area chronic and current use of high-risk medication (opioids) Patient denies any side effects of the current pain medication and the current treatment/medication helping the patient to do activity of daily living , Diagnoses, prognosis, treatment options, including but not limited to physical therapy, medication management, interventional therapies, and surgery, were discussed with the patient All the questions answered The narcotic consent was signed and patient agreed and understood the side effects and complications of opioid treatment. Patient signed the narcotic agreement, and was orally counseled, not to overuse, not to abuse, not to Divert , not tp sell pain medication, and to take it as prescribed only, Patient was counseled not to drive or operate heavy equipment while using narcotic medication, and advised not to use alcohol or any Illicit drugs while using the narcotis. understanding that lack of compliance with any of the above instructions, will likely to cause discharge from, the pain service, not to renew his narcotic prescriptions MAPS Reviwed and it was apropriate . Urine drug screen was reviewed and it showed that patient had high level of EtOH, discussed with the patient and the risk of alcohol addiction and he reported that he drink occasionally Did explain to the patient to risk of combination between opioid EtOH, he reports he will decrease his EtOH consumption, next visit we'll do a urine drug screen Medication managements= patient will be given prescription refills for [place] 5/325 every 8 hours when necessary dispense 45 with one refill Motrin 600 mg every 12 hours when necessary dispense 60 with one refill, will follow up in the pain clinic in 2 months , Time with Patient: Less than 30 PQRS Measure Charge Sheet Measure #130: Documentation of Current Meds in Medical Chart: Patient's medications documented in chart Measure #226: Tobacco Use: Screen & Cessation Intervention: Pt not a tobacco user Measure #111: Pneumonia Vaccination: Pneumococcal vaccine administered or previously received Measure #47: Advance Care Plan: Advance care planning discussed & documented, pt chose/unable to give Measure #412: Opioid Treatment Agreement: Documented signed opioid trtmnt agreemnt min once during opioid trtmnt Measure #408: Opioid Therapy Follow-up Evaluation: Patient had f/u eval minimum every 3 months during opioid therapy Measure #317: Preventitive Care & Scrn High Bld Press & F/U: Normal blood pressure, f/u not required Measure #128: Body Mass Index (BMI) Screening & Follow-up: BMI documented ABOVE normal parameters - f/u documented Measure #131: Pain Assessment & Follow-up: Pain positive & plan documented, Follow-up scheduled Measure #431: Unhealthy Alcohol Use Preventative Care & Scrn: Patient identified as unhealthy alcohol user; counseling given PQRS Narrative: Smoking Status Former smoker Narcotic Agreement Date Signed 11/11/18 Blood Pressure 127/69 Pain Intensity [Lower Back] 2 Scale Used Numeric (1 - 10) Hx Alcohol Use (MH) No Home Medications: Ambulatory Orders Omeprazole [PriLOSEC] 20 mg PO DIRECTED PRN 01/24/14 Pravastatin Sodium [Pravachol] 80 mg PO HS 11/11/16 Aspirin [Adult Low Dose Aspirin EC] 81 mg PO DAILY 05/05/17 Citalopram Hydrobromide [CeleXA] 20 mg PO DAILY 03/31/19 Ibuprofen [Motrin] 600 mg PO BID PRN 06/22/19 Lisinopril [Zestril] 10 mg PO DAILY 06/22/19 HYDROcodone/APAP 5-325MG [[place] 5-325] 1 tab PO BID PRN #45 tab 06/28/19 HYDROcodone/APAP 5-325MG [[place] 5-325] 1 tab PO Q8HR PRN 30 Days #45 tab 06/28/19 Controlled Substance Measures - Controlled Substance Measures Is patient prescribed a controlled substance at discharge?: Yes When asked, does pt state using other controlled substances?: No If prescribed controlled substance>3 days was MAPS reviewed?: Yes If Rx opioid, was Start Talking consent form obtained?: Yes If opioid is for acute pain is fill amount 7 days or less?: No Was information provided regarding opioid addiction?: Yes
== END ==
LOC: PNWHC3 12:37
PROVIDERS: ATTEND Specialist
DX: G89.29 Other chronic pain (principal); M51.36 Other intervertebral disc degeneration, lumbar region; M47.816 Spondylosis without myelopathy or radiculopathy, lumbar region; M46.96 Unspecified inflammatory spondylopathy, lumbar region; Z87.891 Personal history of nicotine dependence; Z79.899 Other long term (current) drug therapy; Z79.1 Long term (current) use of non-steroidal anti-inflammatories (NSAID); Z79.82 Long term (current) use of aspirin; Z79.891 Long term (current) use of opiate analgesic
CPT/HCPCS: 99211

== ENCOUNTER → 2019-08-23 | Outpatient (CLI) | payer MEDICARE ==
[2019-08-23 12:55] VITALS: BP 108/79; PULSE 82; RESP 16
--- NOTE | 2019-08-25 13:25 | P.PAINPG ---
Subjective Progress Note Date: 08/23/19 This is a follow-up visit for this patient with a history of severe and chronic low back pain secondary to lumbar degenerative disc disease, lumbar spondylosis with facet arthropathy, We have managed his pain with a combination of medications and interventional pain procedures- radiofrequency ablation of the medial branch lumbar area in April 2019, pain improved significantly , he continued to have low back pain with activity , greater on the right side, rated as 3/10, described as aching, with no radiation to lower extremities. The patient currently on [place] 5/325 3- 4 tablets per week, Motrin 600 mg twice a day when necessary Patient denies any side effect of the medication , patient denies any excessive drowsiness or sleepiness, patient denies any suicidal ideation, Patient reported that the current medication is helping to control the pain and improve the activity of daily livings, Patient denies any motor or sensory deficit, denies any change in the bowel movement or urination, patient denies any fever or night sweats. Patient here today for follow-up visit and medication refill Review of systems is negative for chest pain, shortness of breath, new onset weakness, numbness/tingling, abdominal pain, malaise, fever, night sweats, chills, homicidal or suicidal ideation, or bowel or bladder incontinence. Objective Physical exam: Vitals: Reviewed in EMR GENERAL: Well appearing, in no acute distress PSYCH: Mood and affect is appropriate. Awake, alert, and oriented SKIN: Skin color, texture, turgor normal, no rashes or lesions HEENT: Normocephalic, atraumatic. EOM intact CV: No pedal edema RESP: Respirations are unlabored, no audible wheezing GI: Abdomen non-distended MUSCULOSKELETAL: Bilateral lower extremity strength is normal and symmetric. No atrophy or tone abnormalities are noted. Lumbar spine: Straight leg raising in the sitting position is negative for radicular pain. No pain to palpation over the lumbar spine and paraspinous muscles. Negative for pain with facet loading and back extension/rotation. Extremities: Peripheral joint ROM is full and pain free without obvious instability or laxity in all four extremities. No edema or skin discolorations noted. Gait: Gait is normal NEUR: Bilateral lower extremity coordination and muscle stretch reflexes are physiologic and symmetric. Negative clonus bilaterally. No loss of sensation is noted. Assessment and Plan Plan: Assessment and plan= chronic low back pain secondary to lumbar degenerative disc disease , lumbar spondylosis with lumbar facet arthropathy . Patient improved after radiofrequency ablation of the medial branch lumbar area chronic and current use of high-risk medication (opioids) Patient denies any side effects of the current pain medication and the current treatment/medication helping the patient to do activity of daily living , Diagnoses, prognosis, treatment options, including but not limited to physical therapy, medication management, interventional therapies, and surgery, were discussed with the patient All the questions answered The narcotic consent was signed and patient agreed and understood the side effects and complications of opioid treatment. MAPS Reviewed and it was appropriate . Today I discussed the hazards of long-term opioid use. Patient is amenable to weaning this. We will reduce his prescription from Dulzura 5/325 #45 to #30 at this visit. At next visit, we will plan on continuing to wean him provide him a prescription for #15. He is amenable to this plan. Medication managements= patient will be given prescription refills for [place] 5/325 every 8 hours when necessary dispense 30 with one refill Patient recently filled his prescription for Motrin and does not need a refill today. We discussed the importance of exercise, next visit we will provide him with an exercise handout. He will follow up in the pain clinic in 2 months Objective - Vital Signs Vital signs: Vital Signs Temp Pulse 82 08/23/19 12:38 Resp 16 08/23/19 12:38 BP 108/79 08/23/19 12:38 Pulse Ox 96 08/23/19 12:38 PQRS Measure Charge Sheet Measure #130: Documentation of Current Meds in Medical Chart: Patient's medications documented in chart Measure #226: Tobacco Use: Screen & Cessation Intervention: Pt not a tobacco user Measure #111: Pneumonia Vaccination: Pneumococcal vaccine administered or previously received Measure #47: Advance Care Plan: Advance care planning discussed & documented, pt chose/unable to give Measure #412: Opioid Treatment Agreement: Documented signed opioid trtmnt agreemnt min once during opioid trtmnt Measure #408: Opioid Therapy Follow-up Evaluation: Patient had f/u eval minimum every 3 months during opioid therapy Measure #317: Preventitive Care & Scrn High Bld Press & F/U: Normal blood pressure, f/u not required Measure #128: Body Mass Index (BMI) Screening & Follow-up: BMI documented within normal parameters Measure #131: Pain Assessment & Follow-up: Pain positive & plan documented, Follow-up scheduled Measure #431: Unhealthy Alcohol Use Preventative Care & Scrn: Patient not identified as an unhealthy alcohol user PQRS Narrative: Smoking Status Former smoker Narcotic Agreement Date Signed 08/23/19 Blood Pressure 108/79 Pain Intensity [Back] 3 Scale Used Numeric (1 - 10) Hx Alcohol Use (MH) No Home Medications: Ambulatory Orders Omeprazole [PriLOSEC] 20 mg PO DAILY PRN 01/24/14 Aspirin [Adult Low Dose Aspirin EC] 81 mg PO DAILY 05/05/17 Citalopram Hydrobromide [CeleXA] 20 mg PO DAILY 03/31/19 Ibuprofen [Motrin] 600 mg PO BID PRN 06/22/19 Lisinopril [Zestril] 10 mg PO DAILY 06/22/19 HYDROcodone/APAP 5-325MG [[place] 5-325] 1 tab PO Q8HR PRN 30 Days #45 tab 06/28/19 Controlled Substance Measures - Controlled Substance Measures Is patient prescribed a controlled substance at discharge?: Yes When asked, does pt state using other controlled substances?: No If prescribed controlled substance>3 days was MAPS reviewed?: Yes If Rx opioid, was Start Talking consent form obtained?: Yes If opioid is for acute pain is fill amount 7 days or less?: No Was information provided regarding opioid addiction?: Yes
== END ==
LOC: PNWHC3 12:24
PROVIDERS: ATTEND Anesthesiology
DX: G89.29 Other chronic pain (principal); M51.36 Other intervertebral disc degeneration, lumbar region; M47.816 Spondylosis without myelopathy or radiculopathy, lumbar region; M46.96 Unspecified inflammatory spondylopathy, lumbar region; Z98.890 Other specified postprocedural states; Z87.891 Personal history of nicotine dependence; Z79.899 Other long term (current) drug therapy; Z79.82 Long term (current) use of aspirin; Z79.891 Long term (current) use of opiate analgesic; Z79.1 Long term (current) use of non-steroidal anti-inflammatories (NSAID)
CPT/HCPCS: 99211

== ENCOUNTER → 2019-10-18 | Outpatient (CLI) | payer MEDICARE ==
[2019-10-18 13:32] VITALS: BP 152/84; PULSE 56; RESP 18
--- NOTE | 2019-10-18 14:06 | P.PAINPG ---
Subjective Progress Note Date: 10/18/19 This is follow-up visit for this patient with a history of severe and chronic low back pain secondary to lumbar degenerative disc disease, lumbar spondylosis with facet arthropathy, We have done an interventional pain procedure radiofrequency ablation of the medial branch lumbar area, pain improve significantly , he continued to have low back pain with activity ,The patient currently on [place] 5/325 1 to 2 tablets a day , Motrin 600 mg twice a day when necessary Patient denies any side effect of the medication , patient denies any excessive drowsiness or sleepiness, patient denies any suicidal ideation, Patient reported that the current medication is helping to control the pain and improve the activity of daily livings, Patient denies any motor or sensory deficit, denies any change in the bowel movement or urination, patient denies any fever or night sweats. Patient here today for follow-up visit and medication refill, last visit we decreased his [place] 5/325 from 45 tablets per month to 30 tablets per month, patient reported that he is doing well on this regimen he denies any side effect, and he feels that he needs to take one tablet a day , to be able to function and do activities of daily livings Objective - Vital Signs Vital signs: Vital Signs Temp Pulse 56 L 10/18/19 13:29 Resp 18 10/18/19 13:29 BP 152/84 10/18/19 13:29 Pulse Ox 98 10/18/19 13:29 - Exam -Constitutiona : Cooperative , not in acute distress . -HEENT : nech : supple , no Lymphadenopathy , normal t hyroid size . eyes : no ptosis , no icterus, no photophobia . - neurologic : Cranial nerve II to XII intact , no focal neurological deffecit . -psychatric : alert , oriented X 3 , appropriate affect , intact judgment and insight . -Lymphatic : no Lymphadenopathy . - musculoskeltal : Lumber spine moter stegnth lower extremities ,thigh and legs 5/5 Right side , 5/5 Left side Assessment and Plan Plan: Assessment and plan= chronic low back pain secondary to lumbar degenerative disc disease , lumbar spondylosis with lumbar facet arthropathy . chronic and current use of high-risk medication (opioids) Patient denies any side effects of the current pain medication and the current treatment/medication helping the patient to do activity of daily living , Diagnoses, prognosis, treatment options, including but not limited to physical therapy, medication management, interventional therapies, and surgery, were discussed with the patient All the questions answered The narcotic consent was signed and patient agreed and understood the side effects and complications of opioid treatment. Patient signed the narcotic agreement, and was orally counseled, not to overuse, not to abuse, not to Divert , not tp sell pain medication, and to take it as prescribed only, Patient was counseled not to drive or operate heavy equipment while using narcotic medication, and advised not to use alcohol or any Illicit drugs while using the narcotis. understanding that lack of compliance with any of the above instructions, will likely to cause discharge from, the pain service, not to renew his narcotic prescriptions MAPS Reviwed and it was apropriate . Medication managements= patient will be given prescription refills for [place] 5/325 every 8 hours dispense 30 with 2 refills, Motrin 600 mg twice a day when necessary dispense 60 with 2 refills, patient will follow up in the pain clinic in 3 months, discussed with the patient the option of increasing his [place] to 15 tablets per month but he reported that he is feeling quite a lot of pain, and is concerned of her not be able to function for this reason I kept the patient on 30 tablets per month , Time with Patient: Less than 30 PQRS Measure Charge Sheet Measure #130: Documentation of Current Meds in Medical Chart: Patient's medications documented in chart Measure #226: Tobacco Use: Screen & Cessation Intervention: Pt not a tobacco user Measure #111: Pneumonia Vaccination: Pneumococcal vaccine administered or previously received Measure #47: Advance Care Plan: Advance care planning discussed & documented, pt chose/unable to give Measure #412: Opioid Treatment Agreement: Documented signed opioid trtmnt agreemnt min once during opioid trtmnt Measure #408: Opioid Therapy Follow-up Evaluation: Patient had f/u eval minimum every 3 months during opioid therapy Measure #317: Preventitive Care & Scrn High Bld Press & F/U: Pre-hypertensive or hypertensive BP documented, pt will f/u with PCP Measure #128: Body Mass Index (BMI) Screening & Follow-up: BMI documented ABOVE normal parameters - f/u documented Measure #131: Pain Assessment & Follow-up: Pain positive & plan documented, Follow-up scheduled Measure #431: Unhealthy Alcohol Use Preventative Care & Scrn: Patient not identified as an unhealthy alcohol user PQRS Narrative: Smoking Status Former smoker Narcotic Agreement Date Signed 08/23/19 Blood Pressure 152/84 Pain Intensity [Lower Back] 2 Scale Used Numeric (1 - 10) Hx Alcohol Use (MH) No Home Medications: Ambulatory Orders Omeprazole [PriLOSEC] 20 mg PO DAILY PRN 01/24/14 Aspirin [Adult Low Dose Aspirin EC] 81 mg PO DAILY 05/05/17 Citalopram Hydrobromide [CeleXA] 20 mg PO DAILY 03/31/19 Lisinopril [Zestril] 10 mg PO DAILY 06/22/19 HYDROcodone/APAP 5-325MG [[place] 5-325] 1 tab PO Q8HR PRN 30 Days #12 tab 10/18/19 HYDROcodone/APAP 5-325MG [[place] 5-325] 1 tab PO Q8HR PRN 30 Days #30 tab 10/18/19 HYDROcodone/APAP 5-325MG [[place] 5-325] 1 tab PO Q8HR PRN 30 Days #30 tab 10/18/19 Ibuprofen [Motrin] 600 mg PO BID PRN #60 tab 10/18/19 Controlled Substance Measures - Controlled Substance Measures Is patient prescribed a controlled substance at discharge?: Yes When asked, does pt state using other controlled substances?: No If prescribed controlled substance>3 days was MAPS reviewed?: Yes If Rx opioid, was Start Talking consent form obtained?: Yes If opioid is for acute pain is fill amount 7 days or less?: No Was information provided regarding opioid addiction?: Yes
== END | disposition home or self-care (01) ==
LOC: PNWHC3 12:37
PROVIDERS: ATTEND Specialist
DX: G89.29 Other chronic pain (principal); M51.36 Other intervertebral disc degeneration, lumbar region; M47.816 Spondylosis without myelopathy or radiculopathy, lumbar region; M46.96 Unspecified inflammatory spondylopathy, lumbar region; Z87.891 Personal history of nicotine dependence; Z98.890 Other specified postprocedural states; Z79.82 Long term (current) use of aspirin; Z79.899 Other long term (current) drug therapy
CPT/HCPCS: 99211

== ENCOUNTER → 2020-03-01 | Outpatient (CLI) | payer MEDICARE ==
[2020-03-01 10:54] VITALS: BP 164/68; PULSE 61; RESP 18; TEMP 98.1
--- NOTE | 2020-03-01 11:28 | P.PAINPG ---
Subjective Progress Note Date: 03/01/20 This is follow-up visit for this patient with a history of severe and chronic low back pain secondary to lumbar degenerative disc disease, lumbar spondylosis with facet arthropathy, We have done an interventional pain procedure radiofrequency ablation of the medial branch lumbar area, pain improve significantly , he continues to have low back pain with activity, left greater than right , rated as 3/10 today, pain does not radiate to lower extremities. The patient currently on [place] 5/325 0- 1 tablet a day , Motrin 600 mg twice a day when necessary Patient denies any side effect of the medication , patient denies any excessive drowsiness or sleepiness, patient denies any suicidal ideation, Patient reported that the current medication is helping to control the pain and improve the activity of daily livings, Patient denies any motor or sensory deficit, denies any change in the bowel movement or urination, patient denies any fever or night sweats. Patient here today for follow-up visit and medication refill, at prior visit, we have decreased his [place] 5/325 from 45 tablets per month to 30 tablets per month, patient reported that he is doing well on this regimen he denies any side effect, he has been doing well with this regimen, in fact goes a few days without taking any medications. Review of systems is negative for chest pain, shortness of breath, new onset weakness, numbness/tingling, abdominal pain, malaise, fever, night sweats, chills, homicidal or suicidal ideation, or bowel or bladder incontinence. Objective Physical exam: Vitals: Reviewed in EMR GENERAL: Well appearing, in no acute distress PSYCH: Mood and affect is appropriate. Awake, alert, and oriented SKIN: Skin color, texture, turgor normal, no rashes or lesions HEENT: Normocephalic, atraumatic. EOM intact CV: No pedal edema RESP: Respirations are unlabored, no audible wheezing GI: Abdomen non-distended MUSCULOSKELETAL: Bilateral lower extremity strength is normal and symmetric. No atrophy or tone abnormalities are noted. Lumbar spine: Tenderness to palpation over the lumbar spine and paraspinous muscles bilaterally, left greater than right. Positive for pain with facet loading and back extension/rotation. Extremities: Peripheral joint ROM is full and pain free without obvious instability or laxity in all four extremities. No edema or skin discolorations noted. NEUR: No loss of sensation is noted. Assessment and Plan Plan: Assessment and plan= chronic low back pain secondary to lumbar degenerative disc disease , lumbar spondylosis with lumbar facet arthropathy . chronic and current use of high-risk medication (opioids) Patient denies any side effects of the current pain medication and the current treatment/medication helping the patient to do activity of daily living , The narcotic consent was signed and patient agreed and understood the side effects and complications of opioid treatment. MAPS Reviewed and it was appropriate . Medication managements= patient will be given prescription refills for [place] 5/325 every 8 hours dispense 15 tablets with no refills, patient has been managing with minimal medications, Motrin 600 mg twice a day when necessarythis was not refilled today as patient has refills on it. Procedures: We will schedule left-sided radiofrequency ablation at L3, L4, L5 for facets L4-5 and L5-S1. The patient will call us to schedule this procedure, after he is able to find a auto driver. If he is unable to find a auto driver, he can have this procedure done without sedation, and drive himself. He will make this decision and then call us to schedule. PQRS Measure Charge Sheet Measure #130: Documentation of Current Meds in Medical Chart: Patient's medications documented in chart Measure #226: Tobacco Use: Screen & Cessation Intervention: Pt not a tobacco user Measure #111: Pneumonia Vaccination: Pneumococcal vaccine administered or p reviously received Measure #47: Advance Care Plan: Advance care planning discussed & documented, pt chose/unable to give Measure #412: Opioid Treatment Agreement: Documented signed opioid trtmnt agreemnt min once during opioid trtmnt Measure #408: Opioid Therapy Follow-up Evaluation: Patient had f/u eval minimum every 3 months during opioid therapy Measure #317: Preventitive Care & Scrn High Bld Press & F/U: Pre-hypertensive or hypertensive BP documented, pt will f/u with PCP Measure #128: Body Mass Index (BMI) Screening & Follow-up: BMI documented within normal parameters - f/u documented Measure #131: Pain Assessment & Follow-up: Pain positive & plan documented, Follow-up scheduled Measure #431: Unhealthy Alcohol Use Preventative Care & Scrn: Patient not identified as an unhealthy alcohol user PQRS Measure Charge Sheet PQRS Narrative: Smoking Status Former smoker Narcotic Agreement Date Signed 12/09/19 Pain Intensity [Back] 3 Scale Used Numeric (1 - 10) Hx Alcohol Use (MH) No Home Medications: Ambulatory Orders Omeprazole [PriLOSEC] 20 mg PO DAILY PRN 01/24/14 Aspirin [Adult Low Dose Aspirin EC] 81 mg PO DAILY 05/05/17 Citalopram Hydrobromide [CeleXA] 20 mg PO DAILY 03/31/19 Ibuprofen [Motrin] 600 mg PO Q8HR PRN #60 tab 12/13/19 Lisinopril 20 mg PO QAM 02/24/20 Rosuvastatin Calcium 40 mg PO DAILY 02/24/20 HYDROcodone/APAP 5-325MG [[place] 5-325] 1 tab PO Q8HR PRN 30 Days #15 tab 03/01/20 Controlled Substance Measures - Controlled Substance Measures Is patient prescribed a controlled substance at discharge?: Yes When asked, does pt state using other controlled substances?: No If prescribed controlled substance>3 days was MAPS reviewed?: Yes If Rx opioid, was Start Talking consent form obtained?: Yes If opioid is for acute pain is fill amount 7 days or less?: No Was information provided regarding opioid addiction?: Yes
== END | disposition home or self-care (01) ==
LOC: PNWHC3 10:25
PROVIDERS: ATTEND Anesthesiology
DX: M51.36 Other intervertebral disc degeneration, lumbar region (principal); M47.816 Spondylosis without myelopathy or radiculopathy, lumbar region; M46.96 Unspecified inflammatory spondylopathy, lumbar region; Z79.891 Long term (current) use of opiate analgesic; Z79.899 Other long term (current) drug therapy; Z79.82 Long term (current) use of aspirin
CPT/HCPCS: 99211

== ENCOUNTER 2020-03-16 08:01 | Day surgery (SDC) | payer MEDICARE ==
[2020-03-14 15:54] VITALS: BMI 26.6
[2020-03-16 08:38] VITALS: TEMP 97
[2020-03-16] MEDS ORDERED: LIDOCAINE 4% (PF) 5 ML AMP ONE (08:59)
--- NOTE | 2020-03-16 09:25 | P.PCN ---
Date of Procedure: 03/16/20 Procedure(s) Performed: PREOPERATIVE DIAGNOSIS: Lumbar Spondylosis POSTOPERATIVE DIAGNOSIS: Same PROCEDURES: Radiofrequency ablation of the L3, L4, L5 medial branches with fluoroscopic guidance on the left side SURGEON: Jasmeet Vaughn MD. ANESTHESIA: Lidocaine 1% 5 mL, no IV sedation EBL: Minimal Fluoroscopy was used for the procedure and images were saved in the radiology portion of the chart. PROCEDURE INDICATION: The patient with low back pain secondary to lumbar facet arthropathy who had more than 50% relief of pain with previous diagnostic lumbar medial branch block X2. PROCEDURE DESCRIPTION / TECHNIQUE: The patient was seen and identified in the preoperative area. Risks, benefits, complications, including but not limited to risk of infection ,bleeding , allergic reactions to the medications and incomplete pain relief , and alternatives were discussed with the patient, the patient agreed to proceed with the procedure and signed the consent. The operative site was marked. Patient was taken to the OR and time out was completed. The patient was placed in the prone position on the procedure table. The lumbar area was prepped and draped in the usual sterile fashion. . Vital signs were closely monitored during the procedure Using AP and then oblique fluoroscopy, the "eye of the Pablo dog" corresponding to the connection between the superior and transverse articular processes of the L4 and L5 as well as the sacral ala were identified, marked, and localized with 1% lidocaine. Subsequently, an 18 guage 100 mm radiofrequency cannula with a 10-mm active tip was advanced guided by fluoroscopy to the identified target at each site. Needle positioning was confirmed on AP, oblique and lateral fluoroscopy. Motor testing at 2.5 Hz was done with paraspinal muscle stimulation only, and no radicular symptoms down the legs. Then 1 mL of 4% lidocaine was injected in each site. Radiofrequency thermocoagulation at 80 degrees celsius for 90 seconds was then performed. Dawson were removed. Sterile dressings were applied. COMPLICATIONS: No acute complications. DISPOSITION / PLANS: The patient was placed in a supine position and transferred to the recovery area in a stable condition for observation and was discharged from the recovery room after meeting discharge criteria. Home discharge instructions given to the patient by the staff. The patient will follow up in clinic in 4 weeks.
[2020-03-16 09:35] VITALS: RESP 18
[2020-03-16 09:56] VITALS: BP 149/95; PULSE 62
--- NOTE | 2020-03-16 14:38 | FL ---
Fluoroscopy HISTORY: Pain 7 seconds fluoroscopy time supplied to the referring clinician. 6 intraoperative C-arm images docume nt the procedure. See dictated report from anesthesia.
== END 2020-03-16 10:04 | disposition home or self-care (01) ==
LOC: ORPAIN 08:01
PROVIDERS: ATTEND Anesthesiology
DX: G89.29 Other chronic pain (principal); M47.896 Other spondylosis, lumbar region; M51.36 Other intervertebral disc degeneration, lumbar region; Z87.891 Personal history of nicotine dependence; Z79.891 Long term (current) use of opiate analgesic; Z79.1 Long term (current) use of non-steroidal anti-inflammatories (NSAID); Z79.899 Other long term (current) drug therapy; Z79.82 Long term (current) use of aspirin
CPT/HCPCS: 64635; 64636; J2001

== ENCOUNTER → 2020-04-11 | Outpatient (CLI) | payer MEDICARE ==
[2020-04-11 11:48] VITALS: BP 170/99; PULSE 65; RESP 16
--- NOTE | 2020-04-11 11:54 | P.PAINPG ---
Subjective Progress Note Date: 04/11/20 This is a follow-up visit for this patient with a history of severe and chronic low back pain secondary to lumbar degenerative disc disease, lumbar spondylosis with facet arthropathy, We have recently done an interventional pain procedure radiofrequency ablation of the medial branch lumbar area L3, L4, L5 medial branches on the left side done on 03/16/2020. He returns today for follow-up. He reports excellent relief from this procedure, current pain score is 1/10. He has stopped taking Ashley, he continues to take Motrin 600 mg twice a day when necessary Patient denies any side effect of the medication , patient denies any excessive drowsiness or sleepiness, patient denies any suicidal ideation, Patient reported that the current medication is helping to control the pain and improve the activity of daily livings, Patient denies any motor or sensory deficit, denies any change in the bowel movement or urination, patient denies any fever or night sweats. Review of systems is negative for chest pain, shortness of breath, new onset weakness, numbness/tingling, abdominal pain, malaise, fever, night sweats, chills, homicidal or suicidal ideation, or bowel or bladder incontinence. Objective Physical exam: Vitals: Reviewed in EMR GENERAL: Well appearing, in no acute distress PSYCH: Mood and affect is appropriate. Awake, alert, and oriented SKIN: Skin color, texture, turgor normal, no rashes or lesions HEENT: Normocephalic, atraumatic. EOM intact CV: No pedal edema RESP: Respirations are unlabored, no audible wheezing GI: Abdomen non-distended MUSCULOSKELETAL: Bilateral lower extremity strength is normal and symmetric. No atrophy or tone abnormalities are noted. Lumbar spine: No Tenderness to palpation over the lumbar spine and paraspinous muscles. Negative for pain with facet loading and back extension/rotation. Extremities: Peripheral joint ROM is full and pain free without obvious instability or laxity in all four extremities. No edema or skin discolorations noted. NEUR: No loss of sensation is noted. Assessment and Plan Plan: Assessment and plan= chronic low back pain secondary to lumbar degenerative disc disease , lumbar spondylosis with lumbar facet arthropathy . Medication management= patient has been weaned off narcotics at last visit. I will give him a prescription for Motrin 600 mg twice a day when necessary with 5 refills. Further refills can be obtained from primary care physician. I provided him with a lumbar exercise handout. Follow-up: As needed PQRS Measure Charge Sheet Measure #130: Documentation of Current Meds in Medical Chart: Patient's medications documented in chart Measure #226: Tobacco Use: Screen & Cessation Intervention: Pt not a tobacco user Measure #111: Pneumonia Vaccination: Pneumococcal vaccine administered or previously received Measure #47: Advance Care Plan: Advance care planning discussed & documented, pt chose/unable to give Measure #412: Opioid Treatment Agreement No documentation of signed opioid treatment Measure #408: Opioid Therapy Follow-up Evaluation No follow-up every 3 months Measure #317: Preventitive Care & Scrn High Bld Press & F/U: Pre-hypertensive or hypertensive BP documented, pt will f/u with PCP Measure #128: Body Mass Index (BMI) Screening & Follow-up: BMI documented within normal parameters - f/u documented Measure #131: Pain Assessment & Follow-up: Pain positive & plan documented, Follow-up as needed Measure #431: Unhealthy Alcohol Use Preventative Care & Scrn: Patient not identified as an unhealthy alcohol user PQRS Measure Charge Sheet PQRS Narrative: Smoking Status Former smoker Narcotic Agreement Date Signed 03/01/20 Pain Intensity [Lower Back] 1 Scale Used Numeric (1 - 10) Hx Alcohol Use (MH) No Home Medications: Ambulatory Orders Omeprazole [PriLOSEC] 20 mg PO DAILY PRN 01/24/14 Aspirin [Adult Low Dose Aspirin EC] 81 mg PO DAILY 05/05/17 Citalopram Hydrobromide [CeleXA] 20 mg PO DAILY 03/31/19 Ibuprofen [Motrin] 600 mg PO Q8HR PRN #60 tab 12/13/19 Rosuvastatin Calcium 40 mg PO DAILY 02/24/20 lisinopriL 20 mg PO BID 02/24/20 HYDROcodone/APAP 5-325MG [Ashley 5-325] 1 tab PO Q8HR PRN 30 Days #15 tab 03/01/20 Controlled Substance Measures - Controlled Substance Measures Is patient prescribed a controlled substance at discharge?: No
== END | disposition home or self-care (01) ==
LOC: PNWHC3 11:22
PROVIDERS: ATTEND Anesthesiology
DX: M51.36 Other intervertebral disc degeneration, lumbar region (principal); M47.816 Spondylosis without myelopathy or radiculopathy, lumbar region; M46.96 Unspecified inflammatory spondylopathy, lumbar region; Z87.891 Personal history of nicotine dependence; Z79.82 Long term (current) use of aspirin; Z79.899 Other long term (current) drug therapy; Z79.891 Long term (current) use of opiate analgesic
CPT/HCPCS: 99211

== ENCOUNTER → 2024-02-17 | Outpatient (CLI) | payer MEDICARE ==
--- NOTE | 2024-02-17 11:48 | XR ---
EXAMINATION TYPE: XR chest 2V DATE OF EXAM: 02/17/2024 11:00 AM CLINICAL INDICATION:Male, 74 years old with history of J44.9 CHRONIC OBSTRUCTIVE PULMONARY DISEASE, U NSPE; [facility] COMPARISON: Chest radiographs from 02/17/2024 TECHNIQUE: XR chest 2V Frontal and lateral views of the chest. FINDINGS: Lungs/Pleura: Prominent interstitial lung markings are seen scattered throughout the lungs with pedrito ening of the diaphragm and increased lucency of the lung apices. No evidence of focal consolidation, pneumothorax or pleural effusion. Pulmonary vascularity: Unremarkable. Heart/mediastinum: Cardiomediastinal silhouette is unremarkable. Musculoskeletal: No acute osseous pathology. Remote right clavicle injury. IMPRESSION: 1. No acute cardiopulmonary disease process. 2. COPD changes.
== END | disposition home or self-care (01) ==
LOC: RADXRMAIN 10:47
PROVIDERS: ATTEND Family Medicine
DX: J44.9 Chronic obstructive pulmonary disease, unspecified (principal)
CPT/HCPCS: 71046